=== PATIENT | female | born 1985 | race Caucasian/White ===

== ENCOUNTER 2020-10-05 06:52 | Outpatient (CLI) | payer OTHER, SELFPAY ==
[2020-10-05 07:37] LABS: Basophils Absolute Auto 0.1 K/mm3 (0.0-0.1); Basophils Percent Auto 0.9 % (0.2-1.2); Eosinophils Absolute Auto 0.4 K/mm3 (0-0.3); Eosinophils Percent Auto 5.1 % (0-4.4); Hematocrit 41.4 % (37.0-47.0); Hemoglobin 13.7 g/dL (12.0-15.0); Immature Granulocyte Absolute 0.06 K/mm3 (0.00-0.031); Immature Granulocyte Percent A 0.9 % (0-0.5); Lymphocytes Absolute Auto 1.56 K/mm3 (0.9-3.2); Lymphocytes Percent Auto 22.9 % (18.3-44.2); Mean Corpuscular HGB Conc 33.1 g/dl (32-36); Mean Corpuscular Hemoglobin 30.8 pg (26-34); Mean Platelet Volume 9.8 fl (7.4-10.4); Monocytes Absolute Auto 0.5 K/mm3 (0.1-0.6); Monocytes Percent Auto 7.6 % (2.6-8.5); Neutrophils Absolute Auto 4.3 K/mm3 (1.3-6.7); Neutrophils Percent Auto 62.6 % (45.5-73.1); Platelet Count Result 237 k/mm3 (150-375); Red Blood Count 4.45 M/mm3 (4.2-5.4); Red Cell Distribution Width 11.6 % (11.5-14.5); White Blood Count 6.8 K/mm3 (4.5-10.0)
[2020-10-05 07:49] LABS: Alanine Aminotransferase 11 U/L (4-35); Alkaline Phosphatase 58 U/L (38-126); Anion Gap 4 mmol/L (8-16); Aspartate Amino Transferase 23 U/L (14-36); Bilirubin,Total 0.3 mg/dL (0.2-1.3); Blood Urea Nitrogen 11 mg/dL (7-17); Calcium 8.6 mg/dL (8.4-10.2); Carbon Dioxide 28 mmol/L (22-30); Chloride 107 mmol/L (98-107); Cholesterol 195 mg/dL (0-200); Estimated Glomerular Filt Rate > 60; Glucose 94 mg/dL (65-105); HDL Direct 49 mg/dL; Potassium 4.4 mmol/L (3.4-5.0); Sodium 139 mmol/L (137-145); Triglycerides 103 mg/dL (<150)
[2020-10-05 08:00] LABS: Hemoglobin A1C 4.9 % (<5.7); LDL Cholesterol Direct 102 mg/dL
[2020-10-05 08:08] LABS: Creatinine Urine 193.8 mg/dL
[2020-10-05 08:13] LABS: MALB Creatinine Ratio 5.2 mg/g (0-30); Microalbumin Urine Random 10.1 mg/L (0-16.7)
[2020-10-05 08:23] LABS: Vitamin D 25 Hydroxy 38.8 ng/mL
== END 2020-10-05 06:53 | disposition home or self-care (01) ==
PROVIDERS: PCP Internal Medicine; Visit Provider Internal Medicine
DX: E78.5 Hyperlipidemia, unspecified (principal); E55.9 Vitamin D deficiency, unspecified; R73.01 Impaired fasting glucose; Z00.00 Encounter for general adult medical examination without abnormal findings
CPT/HCPCS: 36415; 80053; 80061; 82043; 82306; 83036; 84443; 85025

== ENCOUNTER 2021-10-08 08:36 | Outpatient (CLI) | payer OTHER, SELFPAY ==
[2021-10-08 09:19] LABS: Hematocrit 42.4 % (37.0-47.0); Mean Platelet Volume 9.5 fl (7.4-10.4); Platelet Count Result 321 k/mm3 (150-375); Red Blood Count 4.51 M/mm3 (4.2-5.4); Red Cell Distribution Width 11.8 % (11.5-14.5); White Blood Count 6.8 K/mm3 (4.5-10.0)
[2021-10-08 09:24] LABS: Alanine Aminotransferase 13 U/L (4-35); Albumin Level 4.4 g/dL (3.5-5.1); Alkaline Phosphatase 59 U/L (38-126); Anion Gap 8 mmol/L (8-16); Aspartate Amino Transferase 23 U/L (14-36); Bilirubin,Total 0.4 mg/dL (0.2-1.3); Blood Urea Nitrogen 16 mg/dL (7-17); Carbon Dioxide 26 mmol/L (22-30); Chloride 105 mmol/L (98-107); Estimated Glomerular Filt Rate > 60; Glucose 86 mg/dL (65-110); Potassium 4.8 mmol/L (3.4-5.0); Sodium 139 mmol/L (137-145)
== END 2021-10-08 08:37 | disposition home or self-care (01) ==
LOC: ANHLAB 08:38
PROVIDERS: PCP Internal Medicine; Visit Provider Internal Medicine
DX: Z00.00 Encounter for general adult medical examination without abnormal findings (principal)
CPT/HCPCS: 36415; 80053; 85027

== ENCOUNTER 2021-12-12 11:01 | Outpatient (CLI) | payer OTHER, SELFPAY ==
[2021-12-12 12:09] LABS: Appearance Urine Slightly Cloudy (Clear); Bilirubin Urine Negative (Negative); Blood Urine Trace-lysed (Negative); Glucose Urine UA Negative (Negative); Ketones Urine Negative (Negative); Leukocyte Esterase Ur Negative LEU/UL (Negative); Nitrate Urine Negative (Negative); Protein Urine Negative (Negative); Specific Grav Ur <= 1.005 (1.001-1.035); Urobilinogen Urine 0.2 mg/dL (<2.0)
[2021-12-12 12:16] LABS: Add Urine Microscopic? YES; Color Urine Light Yellow (Yellow)
[2021-12-12 12:25] LABS: Bacteria Urine Trace /hpf; RBC Urine 0-2 /hpf (0-2); Squamous Epithelial Cell Urine Few /hpf (Few); WBC Urine 0-3 /hpf
== END 2021-12-12 11:02 | disposition home or self-care (01) ==
LOC: ANHLAB 11:02
PROVIDERS: PCP Internal Medicine; Visit Provider Nurse Practitioner
DX: R30.0 Dysuria (principal)
CPT/HCPCS: 81001

== ENCOUNTER 2022-03-14 09:22 | Outpatient (CLI) | payer OTHER, SELFPAY ==
[2022-03-14 10:05] LABS: Appearance Urine Clear (Clear); Bilirubin Urine Negative (Negative); Blood Urine 2+ (Negative); Color Urine Yellow (Yellow); Glucose Urine UA Negative (Negative); Ketones Urine Negative (Negative); Leukocyte Esterase Ur Trace LEU/UL (Negative); Nitrate Urine Negative (Negative); Protein Urine Negative (Negative); Specific Grav Ur <= 1.005 (1.001-1.035); Urobilinogen Urine 0.2 mg/dL (<2.0); pH Urine 6.5 (5.0-9.0)
[2022-03-14 10:12] LABS: Add Urine Microscopic? YES
[2022-03-14 10:15] LABS: Bacteria Urine Trace /hpf; Mucus Urine Rare /lpf; Squamous Epithelial Cell Urine Rare /hpf (Few); WBC Urine 0-3 /hpf
== END 2022-03-14 09:23 | disposition home or self-care (01) ==
LOC: ANHLAB 09:23
PROVIDERS: PCP Internal Medicine; Visit Provider Internal Medicine
DX: R30.0 Dysuria (principal)
CPT/HCPCS: 81001

== ENCOUNTER 2022-09-26 08:25 | Outpatient (CLI) | payer OTHER, SELFPAY ==
[2022-09-26 09:15] LABS: Hematocrit 41.9 % (37.0-47.0); Mean Corpuscular HGB Conc 33.4 g/dl (32-36); Mean Corpuscular Hemoglobin 30.9 pg (26-34); Mean Corpuscular Volume 92.5 fl (80-100); Mean Platelet Volume 9.8 fl (7.4-10.4); Platelet Count Result 259 k/mm3 (150-375); Red Blood Count 4.53 M/mm3 (4.2-5.4); Red Cell Distribution Width 11.8 % (11.5-14.5); White Blood Count 7.6 K/mm3 (4.5-10.0)
== END 2022-09-26 08:26 | disposition home or self-care (01) ==
LOC: ANHSURGERY 08:29
PROVIDERS: PCP Internal Medicine; Visit Provider Obstetrics & Gynecology
DX: Z01.818 Encounter for other preprocedural examination (principal)
CPT/HCPCS: 36415; 85027

== ENCOUNTER 2022-10-02 00:40 | Day surgery (SDC) | payer OTHER, SELFPAY ==
[2022-09-22 15:38] VITALS: BMI 26.2
--- NOTE | 2022-09-22 15:42 | PC.NURSE ---
Report to the Outpatient Waiting Room, entrance under the green pavilion located off [facility], at time 7:30 on date 10/02/22. Planned Procedure Time: 9:30. Time changes happen often and if your time is changed the preop area will call you the afternoon before. - You and your visitor will be asked to self-screen and do not enter if you have any COVID symptoms. - Only one visitor is requested with a max of two and NO children visitors are allowed at this time. - The patient visitor may be requested to leave or wait in car when not with patient due to distancing restrictions. - A mask is optional within the hospital at this time. Patients may have clear liquids (water, carbonated beverages, clear teas, apple juice) until 3 hours prior to surgery with a maximum of 20 ounces. - No food from midnight until time of surgery Take the following medications with a SIP of water the morning of surgery: NONE DO NOT STOP ANY OF YOUR OTHER PRESCRIPTION MEDICATIONS PRIOR TO SURGERY EXCEPT THE FOLLOWING Medications to discontinue per physician: N/A Date to take last dose: N/A Please no make-up, nail somali, hairspray, perfume, deodorant, or body powder the day of surgery. No jewelry (including any body piercings) or valuables the day of surgery, leave them at home. Please take a shower or bath the night before, or the morning of, surgery with an antibacterial soap. Wear comfortable, loose fitting clothing. - Jewelry must be removed prior to entering the operating room. Rings and piercings that are not removed may be cut off. - The hospital will not accept responsibility for valuables. - Please leave all valuables, including medications, at home the day of surgery. If you are going home after surgery, a licensed helper/driver must drive you home. - NO public transportation without another adult if you receive anesthesia. - We recommend that an adult stay with you for 24 hours following discharge. - We also recommend that you do not drive, make important decision, drink alcoholic beverages, or take any drugs that were not prescribed by your health care provider for at least 24 hours after your discharge time. Follow any additional instructions given to you from your surgeon. If you or anyone in your household have experienced Covid symptoms in the past week, please notify your surgeon or the nurse liaison at the phone number below for possible testing. Telephone instructions given to PT - ESPERANZA QUIROZ and asked if any additional questions and then verbalized understanding. Patient advised to call surgeon office or pre surgery nurse liaison [phone] if any additional questions.
[2022-10-02] VITALS (8 sets, daily range): BP systolic 100–143; BP diastolic 61–94; PULSE 70–94; RESP 12–20; TEMP 36.8; O2SAT 97–100
--- NOTE | 2022-10-02 07:34 | WPDHPUPDATE1 ---
History and Physical Update Update Date/Time: 10/02/22 07:34 History and Physical has been reviewed, including an updated exam of the patient. There are NO changes in the patient's condition. Risks, benefits, and alternatives have been discussed and questions answered. Patient agrees to proceed with procedure.
[2022-10-02] MEDS: LACTATED RINGERS 1,000 ML 30 ML IV CONT ×2 (07:45→10:32)
[2022-10-02] MEDS: ACETAMINOPHEN 500 MG TABLET 1000 MG PO (07:48)
[2022-10-02] MEDS: KETOROLAC 15 MG/ML VIAL (*BKC) IV PUSH (07:49)
[2022-10-02] MEDS: SCOPOLAMINE 1.5 MG PATCH TRANSDERM (08:16)
--- NOTE | 2022-10-02 08:21 | WPDANESEPPF ---
Anes - Initial Pre Proc Eval Procedure: Operation Date: 10/02/22 09:30 Proposed Procedures p Bilateral Laparoscopic Salpingectomy - Jean Fairbanks MD Date/Time: 10/02/22 08:21 Surgeon: Jean Fairbanks MD Pre Op Diagnosis: Desires Serilization Patient Data Age: 37 Gender: F Height: 1.5 m Weight: 58 kg Last Vital Signs Temp 36.8 C 10/02/22 08:00 Pulse 81 10/02/22 08:00 Resp 16 10/02/22 08:00 BP 130/61 10/02/22 08:00 Pulse Ox 100 10/02/22 08:00 O2 Del Method Room Air 10/02/22 08:00 Allergies Allergy/AdvReac Type Severity Reaction Status Date / Time Sulfa (Sulfonamide Allergy Unknown hives Verified 10/02/22 08:07 Antibiotics) Home Medications Medication Instructions Recorded Confirmed Type famotidine 10 mg tablet (Pepcid AC) 10 mg PO DAILY 09/17/22 10/02/22 History loratadine 10 mg tablet (Claritin) 10 mg PO DAILY 09/17/22 10/02/22 History norethindrone (contraceptive) 0.35 0.35 mg PO DAILY #84 tabs 09/17/22 10/02/22 Rx mg tablet Patient hx anesthesia problems: none Family hx anesthesia problems: none Results Review: All pre-operative results and documents have been reviewed as part of the pre-operative evaluation. [facility] Past Medical History Medical History Essential hypertension MAG (generalized anxiety disorder) Hot flashes Hypersomnolence Kidney stones (07/13/06) passed natural Primary narcolepsy without cataplexy Surgical History Surgical History Delivery by section (08/28/19) rpt c/s History of (11/13/10) primary c/s History of gynecological procedure (12/25/10) mirena iud insertion History of gynecological procedure laparoscopic removal of retained IUD device History of gynecological procedure Hscope suction D&C missed AB History of gynecological procedure Hscope D&C retained placenta after delivery Hx laparoscopic cholecystectomy 09/28/18 Family History Family History Sibling Asthma Family history of obesity Depression Hypertension Factor V deficiency Father Family history of diabetes mellitus in first degree relative Family history of heart disease in male family member before age 55 Diabetes mellitus Family history of obesity Patient's father is in good health Mother Family history of diabetes mellitus in first degree relative Family history of heart disease in male family member before age 55 Diabetes mellitus Hypertension Patient's mother is in good health Other Family history of cardiovascular disease Family history of malignant neoplasm Social History Social History Smoking status: Never smoker Second hand tobacco smoke exposure: No Alcohol intake: current Alcohol use details: 1/MONTH Substance use: never Substance use type: does not use Living arrangements: with family Additional living arrangements comments: spouse Occupation/Education: occupation 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 Gender identity (if verbalized by the patient): Female Sexual Orientation (if Verbalized by the Patient): Straight or Heterosexual Spiritual care concerns: No Anes - Eval Final PreProcedure Day of Procedure 10/02/22 08:21 Patient weight: normal Heart: regular rate and rhythm Lungs: clear to auscultation Airway: Mallampati scale class 1 Neurological: alert and oriented Last oral intake: >/= 8 hours ASA classification: II Emergent: no Anesthetic plan: proceed Anesthesia type and monitoring: general ETT and standard monitoring Results Review: All pre-operative results and documents have been reviewed as part of the pre-operative evaluation. Informed Consent: The patient's anesthetic plan and its attendant risks a
--- NOTE | 2022-10-02 10:48 | W.PM.PROC2 ---
Procedure Note - Detailed Date of Procedure 10/02/22 Pre-op Diagnosis 1. Desires Serilization Post-op Diagnosis Same (2. Left ovarian cyst) Procedure Performed 1. Laparoscopic bilateral salpingectomy 2. Laparoscopic left ovarian cystotomy Surgeon Jean Fairbanks MD Anesthesia General Findings 1. Left ovarian simple cyst 2. Uterus consistent with adenomyosis Description of Procedure Patient prepped in usual manner for this procedure. Cervical instruments placed for uterine mobility throughout the case. Abdominal trocar sites were placed under direct visualization. Bilaterally the tubes were grasped with a Harmonic scalpel to cauterize and cut the mesial salpinx and the tubes removed without difficulty. Left ovarian cyst was drained of 50cc clear fluid. There was no significant bleeding and the cyst had decompressed. At this point the procedure was considered terminated, gas was allowed to escape, trocars removed and incisions approximated using 4-0 Monocryl. Estimated Blood Loss 10 Drains No Packing No Pathology Yes Complications No immediate complications Condition Stable Disposition PACU [facility] Billing Surgery - Charge Forward: Surgery Billing
[2022-10-02] MEDS: fentaNYL CITRATE INJ (*CRX) 100 MCG/2 ML VIAL 25 MCG IV PUSH ×3 (10:53→11:06)
[2022-10-02] MEDS: oxyCODONE HCL (*CRX) 5 MG TAB IR PO (11:36)
== END 2022-10-02 12:15 | disposition home or self-care (01) ==
PROVIDERS: PCP Internal Medicine; Visit Provider Obstetrics & Gynecology
PROC: (CPT 49320; principal; 2022-10-02 09:30)
DX: Z30.2 Encounter for sterilization (principal); N83.202 Unspecified ovarian cyst, left side; N83.8 Other noninflammatory disorders of ovary, fallopian tube and broad ligament
CPT/HCPCS: 58661; 58662; 36415; 85027; 88302; A9270; J0330; J1100; J1170; J1885; J2250; J2405; J2704; J3010; J7120

== ENCOUNTER 2022-10-11 06:53 | Outpatient (CLI) | payer OTHER, SELFPAY ==
[2022-10-11 07:30] LABS: Alanine Aminotransferase 15 U/L (6-35); Albumin Level 4.4 g/dL (3.5-5.1); Alkaline Phosphatase 54 U/L (38-126); Anion Gap 5 mmol/L (8-16); Aspartate Amino Transferase 20 U/L (14-36); Bilirubin,Total 0.6 mg/dL (0.2-1.3); Blood Urea Nitrogen 11 mg/dL (7-17); Calcium 8.8 mg/dL (8.4-10.2); Carbon Dioxide 27 mmol/L (22-30); Chloride 106 mmol/L (98-107); Cholesterol 222 mg/dL (0-200); Estimated Glomerular Filt Rate > 60; Glucose 91 mg/dL (65-110); HDL Direct 57 mg/dL; Potassium 4.8 mmol/L (3.4-5.0); Sodium 138 mmol/L (137-145); Triglycerides 128 mg/dL (<150)
[2022-10-11 07:41] LABS: LDL Cholesterol Direct 113 mg/dL
[2022-10-11 07:42] LABS: Hemoglobin A1C 5.1 % (<5.7)
[2022-10-11 07:43] LABS: Vitamin D 25 Hydroxy 27.8 ng/mL
== END 2022-10-11 06:54 | disposition home or self-care (01) ==
LOC: ANHLAB 06:54
PROVIDERS: PCP Internal Medicine; Visit Provider Nurse Practitioner
DX: Z00.00 Encounter for general adult medical examination without abnormal findings (principal); E78.5 Hyperlipidemia, unspecified; R73.01 Impaired fasting glucose; E55.9 Vitamin D deficiency, unspecified
CPT/HCPCS: 36415; 80053; 80061; 82306; 83036; 84439; 84443

== ENCOUNTER 2022-11-26 15:32 | Outpatient (CLI) | payer OTHER, SELFPAY ==
--- NOTE | ~2022-11-26 | XR_ITS ---
XR abdomen/kub 1V 11/26/2022 16:13 Indication: Kidney stones Procedure: KUB Comparison: 02/07/2007 Findings: Bowel gas pattern is nonobstructive. There is calcification in the left upper abdomen, most likely a stone in the upper pole of left kidney. No acute osseous abnormality. Lung bases are unrema rkable. Impression: 1: Probable left nephrolithiasis. Reviewed, dictated and finalized at location B. Impression: 1: Probable left nephrolithiasis.
[2022-11-26 16:02] LABS: Appearance Urine Clear (Clear); Bacteria Urine None Seen /hpf; Bilirubin Urine Negative (Negative); Blood Urine Trace (Negative); Color Urine Yellow (Yellow); Glucose Urine UA Negative (Negative); Ketones Urine Negative (Negative); Leukocyte Esterase Ur 1+ LEU/UL (Negative); Need Manual Microscopic Reviewed; Nitrate Urine Negative (Negative); Non Pathogenic Casts 0-2; Protein Urine Negative (Negative); RBC Urine 0-2 /hpf (0-2); Specific Grav Ur 1.004 (1.001-1.035); Squamous Epithelial Cell Urine None seen /hpf (Few); Urobilinogen Urine 0.2 mg/dL (<2.0); WBC Urine 0-5 /hpf; pH Urine 5.5 (5.0-9.0)
[2022-11-26 16:05] LABS: Add Urine Microscopic? YES
== END 2022-11-26 15:33 | disposition home or self-care (01) ==
LOC: ANHLAB 15:34
PROVIDERS: PCP Family Medicine; Visit Provider Nurse Practitioner
DX: R10.9 Unspecified abdominal pain (principal)
CPT/HCPCS: 74018; 81001

== ENCOUNTER 2023-06-02 08:46 | Outpatient (CLI) | payer OTHER, SELFPAY ==
--- NOTE | ~2023-06-02 | XR_ITS ---
XR abdomen/kub 1V 06/02/2023 09:09 INDICATION: Left kidney stone TECHNIQUE: KUB COMPARISON: 11/26/2022 FINDINGS: Bowel gas pattern is normal. There is no evidence of free air, mass, organomegaly, ascites or obstruction. There is a 4 mm left renal stone. The bones appear intact. IMPRESSION: 1: Stable 4 mm left renal stone. Reviewed, dictated and finalized at location L. ET ASSEMBLER
== END 2023-06-02 08:47 | disposition home or self-care (01) ==
PROVIDERS: PCP Nurse Practitioner; Visit Provider Urology
DX: N20.0 Calculus of kidney (principal)
CPT/HCPCS: 74018

== ENCOUNTER 2023-06-22 15:53 | Outpatient (CLI) | payer OTHER, SELFPAY ==
[2023-06-22 17:08] LABS: Prothrombin Time 13.3 Seconds (11.1-14.7)
[2023-06-22 17:09] LABS: Partial Thromboplastin Time 30.9 SECONDS (22.3-36.8)
== END 2023-06-22 15:54 | disposition home or self-care (01) ==
PROVIDERS: PCP Nurse Practitioner; Visit Provider Urology
DX: N20.0 Calculus of kidney (principal)
CPT/HCPCS: 36415; 85610; 85730; 87086; 87088

== ENCOUNTER 2023-06-26 04:23 | Day surgery (SDC) | payer OTHER, SELFPAY ==
--- NOTE | 2023-06-19 07:41 | PM.HPGS ---
History of Present Illness History of Present Illness Consent: Risks, benefits, and alternatives have been discussed and questions answered. Patient agrees to proceed with procedure. Chief complaint: left renal stone Narrative: Tasha Gomez is a 38 year old female with a known history of recurrent urolithiasis who was seen approximately 5-6 months ago when KUB imaging demonstrated a moderate-sized stone in her left kidney. This has become slightly problematic and, after discussion of therapeutic options she is elected for left ESWL. She is aware of the risks including, but not limited to, need for additional procedures, hematuria and perinephric hematoma Review of Systems Review of Systems: All systems reviewed & are unremarkable except as noted in HPI and below PMFSH Past Medical History Medical History (Updated 04/23/23 @ 14:05 by Sebastian Sewell APRN) Essential hypertension MAG (generalized anxiety disorder) Hot flashes Hypersomnolence Kidney stones (07/13/06) passed natural Low vitamin D level Primary narcolepsy without cataplexy Surgical History Surgical History Delivery by section (08/28/19) rpt c/s H/O bilateral salpingectomy (10/02/22) Laparoscopic bilateral salpingectomy Laparoscopic left ovarian cystotomy History of (11/13/10) primary c/s History of gynecological procedure (12/25/10) mirena iud insertion History of gynecological procedure laparoscopic removal of retained IUD device History of gynecological procedure Hscope suction D&C missed AB History of gynecological procedure Hscope D&C retained placenta after delivery Hx laparoscopic cholecystectomy 09/28/18 Family History Family History Sibling Asthma Family history of obesity Depression Hypertension Factor V deficiency Father Family history of diabetes mellitus in first degree relative Family history of heart disease in male family member before age 55 Diabetes mellitus Family history of obesity Patient's father is in good health Mother Family history of diabetes mellitus in first degree relative Family history of heart disease in male family member before age 55 Diabetes mellitus Hypertension Patient's mother is in good health Other Family history of cardiovascular disease Family history of malignant neoplasm Social History Social History Smoking status: Never smoker Second hand tobacco smoke exposure: No Alcohol intake: current Alcohol use details: 1/MONTH Substance use: never Substance use type: does not use Lack of Transportation: No Lack of Food: Never True Current Housing: I Have Housing Concerned About Future Housing: No Difficulty Paying Gas/Electric Bills: No Difficulty Paying for Meds: No Currently Unemployed: No Education: Associate Degree Difficulty w/ Childcare or Family Care: No Living arrangements: with family Additional living arrangements comments: spouse Occupation/Education: occupation 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 Gender identity (if verbalized by the patient): Female Sexual Orientation (if Verbalized by the Patient): Straight or Heterosexual Spiritual care concerns: No Meds Home Medications and Allergies Home Medications Medication Instructions Recorded Confirmed Type famotidine 10 mg tablet (Pepcid AC) 10 mg PO DAILY 09/17/22 04/23/23 History loratadine 10 mg tablet (Claritin) 10 mg PO DAILY 09/17/22 04/23/23 History cholecalciferol (vitamin D3) 50 50 mcg PO DAILY 10/15/22 04/23/23 History mcg (2,000 unit) capsule apixaban 2.5 mg tablet (Eliquis) 2.5 mg PO BID 04/23/23 04/23/23 History Allergies Allergy/AdvReac Type Severity Reaction Status Date / Time Sulfa (Sulfonamide Allergy Unknown hi
[2023-06-22 15:02] VITALS: BMI 26.2
--- NOTE | 2023-06-22 15:10 | PC.NURSE ---
Report to the Outpatient Waiting Room, entrance under the green pavilion located off [facility], at time 830__ on date __06/26 . Planned Procedure Time: 1030___. Time changes happen often and if your time is changed the preop area will call you the afternoon before. - You and your visitor will be asked to self-screen and do not enter if you have any COVID symptoms. - A mask is optional within the hospital at this time. Patients may have clear liquids (water, carbonated beverages, clear teas, apple juice) until 3 hours prior to surgery with a maximum of 20 ounces. 730 stop - No food from midnight until time of surgery Take the following medications with a SIP of water the morning of surgery: NA DO NOT STOP ANY OF YOUR OTHER PRESCRIPTION MEDICATIONS PRIOR TO SURGERY ?EXCEPT THE FOLLOWING Medications to discontinue per physician stopped aspirin and Vit D3 as office advised a week ago Please no make-up, nail luxembourgish, hairspray, perfume, deodorant, or body powder the day of surgery. No jewelry (including any body piercings) or valuables the day of surgery, leave them at home. Please take a shower or bath the night before, or the morning of, surgery with an antibacterial soap. Wear comfortable, loose fitting clothing. - Jewelry must be removed prior to entering the operating room. Rings and piercings that are not removed may be cut off. - The hospital will not accept responsibility for valuables. - Please leave all valuables, including medications, at home the day of surgery. If you are going home after surgery, a licensed delivery driver/customer service must drive you home. - NO public transportation without another adult if you receive anesthesia. - We recommend that an adult stay with you for 24 hours following discharge. - We also recommend that you do not drive, make important decision, drink alcoholic beverages, or take any drugs that were not prescribed by your health care provider for at least 24 hours after your discharge time. Follow any additional instructions given to you from your surgeon. If you or anyone in your household have experienced Covid symptoms in the past week, please notify your surgeon or the nurse liaison at the phone number below for possible testing. Telephone instructions given to __patient__and asked if any additional questions and then verbalized understanding. Patient advised to call surgeon office or pre surgery nurse liaison [phone] if any additional questions.
[2023-06-26] VITALS (8 sets, daily range): BP systolic 109–131; BP diastolic 69–80; PULSE 76–107; RESP 12–18; TEMP 36.3–36.9; O2SAT 97–100
--- NOTE | ~2023-06-26 | XR_ITS ---
EXAMINATION: XR abdomen/kub 1V INDICATION: Kidney stone TECHNIQUE: Supine views of the abdomen were obtained on 2 radiographs. COMPARISON: 06/02/2023 FINDINGS: There is a 4 mm stone of the left kidney. No additional urolithiasis is identified. The bow el gas pattern is normal. There is a moderate volume of colonic stool. IMPRESSION: 1. Stable 4 mm stone of the left kidney. Reviewed, dictated and finalized at location B. O PRODUCER
--- NOTE | 2023-06-26 06:27 | WPDHPUPDATE1 ---
History and Physical Update Update Date/Time: 06/26/23 06:27 History and Physical has been reviewed, including an updated exam of the patient. There are NO changes in the patient's condition. Risks, benefits, and alternatives have been discussed and questions answered. Patient agrees to proceed with procedure.
--- NOTE | 2023-06-26 09:16 | WPDANESEPPF ---
Anes - Initial Pre Proc Eval Procedure: Operation Date: 06/26/23 10:30 Proposed Procedures p Left Extracorporeal Shock Wave Lithotripsy - Kannan Osorio MD Date/Time: 06/26/23 09:16 Surgeon: Kannan Osorio MD Pre Op Diagnosis: left renal stone Patient Data Age: 38 Gender: F Height: 1.5 m Weight: 58.2 kg Allergies Allergy/AdvReac Type Severity Reaction Status Date / Time Sulfa (Sulfonamide Allergy Unknown hives Verified 06/26/23 09:03 Antibiotics) Home Medications Medication Instructions Recorded Confirmed Type famotidine 10 mg tablet (Pepcid AC) 20 mg PO BID 09/17/22 06/22/23 History loratadine 10 mg tablet (Claritin) 10 mg PO DAILY 09/17/22 06/22/23 History cholecalciferol (vitamin D3) 50 50 mcg PO DAILY 10/15/22 06/22/23 History mcg (2,000 unit) capsule aspirin 81 mg chewable tablet 81 mg PO DAILY 06/22/23 06/22/23 History Patient hx anesthesia problems: none Family hx anesthesia problems: none Results Review: All pre-operative results and documents have been reviewed as part of the pre-operative evaluation. [facility] Past Medical History Medical History Essential hypertension MAG (generalized anxiety disorder) Hot flashes Hypersomnolence Kidney stones (07/13/06) passed natural Low vitamin D level Primary narcolepsy without cataplexy Surgical History Surgical History Delivery by section (08/28/19) rpt c/s H/O bilateral salpingectomy (10/02/22) Laparoscopic bilateral salpingectomy Laparoscopic left ovarian cystotomy History of (11/13/10) primary c/s History of gynecological procedure (12/25/10) mirena iud insertion History of gynecological procedure laparoscopic removal of retained IUD device History of gynecological procedure Hscope suction D&C missed AB History of gynecological procedure Hscope D&C retained placenta after delivery Hx laparoscopic cholecystectomy 09/28/18 Family History Family History Sibling Asthma Family history of obesity Depression Hypertension Factor V deficiency Father Family history of diabetes mellitus in first degree relative Family history of heart disease in male family member before age 55 Diabetes mellitus Family history of obesity Patient's father is in good health Mother Family history of diabetes mellitus in first degree relative Family history of heart disease in male family member before age 55 Diabetes mellitus Hypertension Patient's mother is in good health Other Family history of cardiovascular disease Family history of malignant neoplasm Social History Social History Smoking status: Never smoker Second hand tobacco smoke exposure: No Alcohol intake: never Alcohol use details: 1/MONTH Substance use: never Substance use type: does not use Lack of Transportation: No Lack of Food: Never True Current Housing: I Have Housing Concerned About Future Housing: No Difficulty Paying Gas/Electric Bills: No Difficulty Paying for Meds: No Currently Unemployed: No Education: Associate Degree Difficulty w/ Childcare or Family Care: No Living arrangements: with family Additional living arrangements comments: spouse Occupation/Education: occupation 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
[2023-06-26] MEDS: LACTATED RINGERS 1,000 ML 30 ML IV CONT ×2 (09:45→12:03)
[2023-06-26] MEDS: ceFAZolin 2 GM/D5W 50 ML 2 GM/50 ML BAG IVPB (10:38)
--- NOTE | 2023-06-26 10:59 | W.PM.PROC2 ---
Procedure Note - Detailed Date of Procedure 06/26/23 Pre-op Diagnosis Left renal stone Post-op Diagnosis Same Procedure Performed Left ESWL Surgeon Kannan Osorio MD Anesthesia General Description of Procedure The patient was brought to the operative suite where she was placed in the supine position on the Dornier lithotripsy table. The focal point of the lithotripter was placed at a 5-6mm left upper pole calculus. A total of 2500 shocks were delivered at a power setting of 4. There appeared to be good fragmentation of the stone. The patient tolerated the procedure well and was taken to the recovery room in good condition. Drains No Packing No Pathology None sent Complications No immediate complications Condition Stable Disposition PACU
== END 2023-06-26 13:53 | disposition home or self-care (01) ==
PROVIDERS: PCP Nurse Practitioner; Visit Provider Urology
PROC: (CPT 50590; principal; 2023-06-26 10:30)
DX: N20.0 Calculus of kidney (principal); I10 Essential (primary) hypertension
CPT/HCPCS: 50590; 74018; J0690; J1100; J2250; J2405; J2704; J3010; J7120

== ENCOUNTER 2023-07-08 10:26 | Outpatient (CLI) | payer OTHER, SELFPAY ==
--- NOTE | ~2023-07-08 | XR_ITS ---
XR abdomen/kub 1V 07/08/2023 10:44 Indication: Renal stone. Previous lithotripsy. Procedure: KUB Comparison: Comparison to multiple prior studies sequentially, with oldest reviewed study dated 01/2023. Findings: Stable left renal calcification corresponding to cortical calcification seen on prior CT da danny 12/16/2022 bowel gas pattern nonobstructing. No acute osseous abnormality. Impression: 1: Stable left renal stone. Reviewed, dictated and finalized at location B. STRIAL GARAGE SERVICER Impression: 1: Stable left renal stone.
== END 2023-07-08 10:27 | disposition home or self-care (01) ==
PROVIDERS: PCP Nurse Practitioner; Visit Provider Urology
DX: N20.0 Calculus of kidney (principal)
CPT/HCPCS: 74018

== ENCOUNTER 2023-07-29 14:08 | Outpatient (CLI) | payer OTHER, SELFPAY | END 2023-07-29 14:09 | disposition home or self-care (01) | LOC: ANHLAB 14:10 | PROVIDERS: PCP Nurse Practitioner; Visit Provider Internal Medicine Critical Care Medicine | DX: G25.81 Restless legs syndrome (principal) | CPT/HCPCS: 36415; 82728 ==

== ENCOUNTER 2023-08-14 09:48 | Outpatient (CLI) | payer OTHER, SELFPAY ==
[2023-08-14 11:06] LABS: Appearance Urine Clear (Clear); Bacteria Urine 1+ /hpf; Bilirubin Urine Negative (Negative); Color Urine Yellow (Yellow); Glucose Urine UA Negative (Negative); Ketones Urine Negative (Negative); Leukocyte Esterase Ur 3+ LEU/UL (Negative); Need Manual Microscopic Reviewed; Nitrate Urine Negative (Negative); Non Pathogenic Casts 0-2; Protein Urine Negative (Negative); RBC Urine 0-2 /hpf (0-2); Specific Grav Ur 1.005 (1.001-1.035); Squamous Epithelial Cell Urine None seen /hpf (Few); Urobilinogen Urine 0.2 mg/dL (<2.0); WBC Urine 21-50 /hpf; pH Urine 5.5 (5.0-9.0)
[2023-08-14 11:08] LABS: Add Urine Microscopic? YES
== END 2023-08-14 09:49 | disposition home or self-care (01) ==
LOC: ANHLAB 09:50
PROVIDERS: PCP Nurse Practitioner; Visit Provider Nurse Practitioner
DX: R39.9 Unspecified symptoms and signs involving the genitourinary system (principal)
CPT/HCPCS: 81001; 87086

== ENCOUNTER 2023-08-31 08:45 | Outpatient (CLI) | payer OTHER, SELFPAY ==
--- NOTE | 2023-09-10 13:41 | WPDHOMESLEEP ---
Sleep Study - Home Unattended Date of Study: 08/31/23 Ordering Provider: Anjali Blanco MD Interpreting Provider: Anjali Blanco MD Home Sleep Study Type: Watch PAT Height: 1.5 m Weight: 58.513 kg Body Mass Index: 26.0 Neck Circumference (inches): 13 [place]: 12 Reason for Sleep Study Hypersomnolence * Apr 15, 2016- PSG- AHI 0.3, high sleep efficiency, short sleep onset and short REM latency; MSLT 3 m 47 sec, no SOREMP, no diagnosis of narcolepsy; she was diagnosed with idiopathic hypersomnolence * 01/04/2014 - PSG- AHI 0.3, lowest saturation 90%, periodic limb movement index 3.7; REM latency was short, 62.5 minutes. MSLT was recommended. Sleep History Tasha Gomez is a 38-year-old woman with longstanding hypersomnolence, see above study results. Since then, she has been diagnosed with Factor V Leiden mutation and vision loss due to retinal vein occlusion without atrial fibrillation. She was referred for repeat evaluation to assure that she does not have nocturnal ischemia that would cause additional visual loss, in addition to persistent hypersomnolence. She rarely awakens from sleep short of breath. She occasionally wakes at night with heartburn, belching or coughing.??She rarely snores, never snores loudly enough that others complain. She frequently has trouble sleeping when she has a cold. She rarely wakes up gasping for breath during the night. She occasionally has breathing problems at night. She frequently sweats excessively at night. She occasionally notices her heart pounding or beating irregularly during the night. She frequently falls asleep during the day. She rarely falls asleep involuntarily, never falls asleep while driving. She never experiences loss of muscle tone with strong emotion. She occasionally feels paralyzed on waking or falling asleep. She occasionally experiences vivid dreams upon waking or falling asleep. She never feels afraid of going to sleep. She occasionally has nightmares. She occasionally recalls her dreams. She occasionally has thoughts racing through her mind. She never feels sad or depressed. She rarely feels anxiety. She occasionally notices parts of her body jerk. She frequently kicks during the night. She frequently feels crawling or aching feelings in her legs. She frequently feels leg pain at night. She rarely has morning jaw pain, however never grinds her teeth at night. She never feels bothered by pain during the day, is never awakened by pain during the night. She rarely wakes up feeling stiff in the morning, rarely wakes feeling sore or achy in the morning. She rarely awakens with pain in her neck, spine, or joints. she has fatigue, concentration difficulties, headaches and she takes antacids regularly. Normal bedtime is between 9:30 p.m. and 10:00 p.m., falling asleep within 15 minutes, typically waking several times at night, between 6 and 8 episodes of wakefulness, and these are for no apparent reason. These happen soon after falling asleep, in the middle of the night and the family health nurse practitioner hours. When awake, she may possibly get a drink of water and then returns to sleep within 5-10 minutes. Her wake time is 6:30 a.m.. On weekends, bedtime is a little later, 10:00 p.m. to 10:30 p.m. and wake time is a little later, 7:30 a.m. to 8:00 a.m. Her excessive sleepiness interrupts her personal life, avoiding social events and intimacy at times. she does not generally take naps in the day. A short nap lasting 10-15 minutes is not refreshing. She is drowsy for 2 hours after waking. Habits:??Tobacco: Never smoker Caffeine: 2 cups of coffee per day, between 12 and 20 oz. Alcohol: none Recreational substances: none [facility] Past Medical History Medical History Essential hypertension Factor 5 Leiden mutation, heterozygous MAG (generalized anxiety disorder) Hot flashes Hypersomnolence Kidney stones (07/13/06) passed natural Lo
[2023-09-10 14:08] VITALS: BMI 26.0
== END 2023-09-01 07:00 | disposition home or self-care (01) ==
LOC: ANHCSM 08:45
PROVIDERS: PCP Nurse Practitioner; Visit Provider Internal Medicine Critical Care Medicine
DX: G47.10 Hypersomnia, unspecified (principal)
CPT/HCPCS: 95800

== ENCOUNTER 2023-09-30 09:38 | Outpatient (CLI) | payer OTHER, SELFPAY ==
--- NOTE | 2023-10-05 13:25 | WPDSLEEPSTUD ---
Sleep Study Date of Study: 09/30/23 Ordering Provider: Anjali Blanco MD Interpreting Physician: Sara Everett, Sleep Study Type: Polysomnogram Height: 1.5 m Weight: 58.967 kg Body Mass Index: 26.2 Neck Circumference (inches): 14 [place]: 12 Reason for Sleep Study Hypersomnia * Apr 15, 2016- PSG- AHI 0.3, high sleep efficiency, short sleep onset and short REM latency; MSLT 3 m 47 sec, no SOREM, no diagnosis of narcolepsy; she was diagnosed with idiopathic hypersomnolence * 01/04/2014 - PSG-? AHI 0.3, lowest saturation 90%, periodic limb movement index 3.7;? REM latency was short, 62.5 minutes. MSLT was recommended. * 08/31/2023- HST (WatchPAT), AHI 0.3, lowest saturation 93%, sleep efficiency 86% Sleep History Tasha Gomez is a?38-year-old woman with longstanding hypersomnolence, see above study results.? Since then, she has been diagnosed with Factor V Leiden mutation and vision loss due to retinal vein occlusion without atrial fibrillation. She was referred for repeat evaluation to assure that she does not have nocturnal ischemia that would cause additional visual loss, in addition to persistent hypersomnolence.? She rarely awakens from sleep short of breath.? She occasionally wakes at night with heartburn, belching or coughing.??She? rarely snores, never snores loudly enough that others complain. She frequently has trouble sleeping when she has a cold.? She rarely wakes up gasping for breath during the night. She occasionally has breathing problems at night. She frequently sweats excessively at night. She occasionally notices her heart pounding or beating irregularly during the night.? She frequently falls asleep during the day.? She rarely falls asleep involuntarily, never falls asleep while driving. She never experiences loss of muscle tone with strong emotion.? She? occasionally feels paralyzed on waking or falling asleep. She occasionally experiences vivid dreams upon waking or falling asleep. She never feels afraid of going to sleep. She occasionally has nightmares. She occasionally recalls her dreams. She occasionally has thoughts racing through her mind. She never feels sad or depressed. She rarely feels anxiety. She occasionally notices parts of her body jerk.? She frequently kicks during the night. She frequently feels crawling or aching feelings in her legs. She frequently feels leg pain at night. She rarely has morning jaw pain,? however never grinds her teeth at night.? She never feels bothered by pain during the day, is never awakened by pain during the night. She rarely wakes up feeling stiff in the morning,? rarely wakes feeling sore or achy in the morning.? She rarely awakens with pain in her neck, spine, or joints.? she has fatigue, concentration difficulties, headaches and she takes antacids regularly. Normal bedtime is between 9:30 p.m. and 10:00 p.m., falling asleep within 15 minutes, typically waking several times at night, between 6 and 8 episodes of wakefulness, and these are for no apparent reason.? These happen soon after falling asleep, in the middle of the night and the tester sound hours.? When awake, she may possibly get a drink of water and then returns to sleep within 5-10 minutes.? Her wake time is 6:30 a.m..? On weekends, bedtime is a little later, 10:00 p.m. to 10:30 p.m. and wake time is a little later, 7:30 a.m. to 8:00 a.m.? Her excessive sleepiness interrupts her personal life, avoiding social events and intimacy at times.? she does not generally take naps in the day.? A short nap lasting 10-15 minutes is not refreshing.? She is drowsy for 2 hours after waking. Habits:??Tobacco:? Never smoker? ? ? Caffeine: 2 cups of coffee per day, between 12 and 20 oz. ? Alcohol: none ? ? Recreational substances: none [facility] Past Medical History Medical History Essential hypertension Factor 5 Leiden mutation, heterozygous MAG (generalized anxiety disorder) Hot flas
[2023-10-05 13:27] VITALS: BMI 26.2
[2023-10-05 14:08] VITALS: BMI 26.2
--- NOTE | 2023-10-05 14:08 | WPDSLEEPSTUD ---
Sleep Study Date of Study: 09/30/23 Ordering Provider: Anjali Blanco MD Interpreting Physician: Sara Everett, Sleep Study Type: Multiple Sleep Latency Test Height: 1.5 m Weight: 58.967 kg Body Mass Index: 26.2 Neck Circumference (inches): 14 [place]: 12 Reason for Sleep Study Hypersomnolence * Apr 15, 2016- PSG- AHI 0.3, high sleep efficiency, short sleep onset and short REM latency; MSLT 3 m 47 sec, no SOREMP, no diagnosis of narcolepsy; she was diagnosed with idiopathic hypersomnolence * 01/04/2014 - PSG-? AHI 0.3, lowest saturation 90%, periodic limb movement index 3.7;? REM latency was short, 62.5 minutes. MSLT was recommended. * 08/31/2023- HST (WatchPAT), AHI 0.3, lowest saturation 93%, sleep efficiency 86% Sleep History Tasha Gomez is a?38-year-old woman with longstanding hypersomnolence, see above study results.? Since then, she has been diagnosed with Factor V Leiden mutation and vision loss due to retinal vein occlusion without atrial fibrillation. She was referred for repeat evaluation to assure that she does not have nocturnal ischemia that would cause additional visual loss, in addition to persistent hypersomnolence.? She rarely awakens from sleep short of breath.? She occasionally wakes at night with heartburn, belching or coughing.??She? rarely snores, never snores loudly enough that others complain. She frequently has trouble sleeping when she has a cold.? She rarely wakes up gasping for breath during the night. She occasionally has breathing problems at night. She frequently sweats excessively at night. She occasionally notices her heart pounding or beating irregularly during the night.? She frequently falls asleep during the day.? She rarely falls asleep involuntarily, never falls asleep while driving. She never experiences loss of muscle tone with strong emotion.? She? occasionally feels paralyzed on waking or falling asleep. She occasionally experiences vivid dreams upon waking or falling asleep. She never feels afraid of going to sleep. She occasionally has nightmares. She occasionally recalls her dreams. She occasionally has thoughts racing through her mind. She never feels sad or depressed. She rarely feels anxiety. She occasionally notices parts of her body jerk.? She frequently kicks during the night. She frequently feels crawling or aching feelings in her legs. She frequently feels leg pain at night. She rarely has morning jaw pain,? however never grinds her teeth at night.? She never feels bothered by pain during the day, is never awakened by pain during the night. She rarely wakes up feeling stiff in the morning,? rarely wakes feeling sore or achy in the morning.? She rarely awakens with pain in her neck, spine, or joints.? she has fatigue, concentration difficulties, headaches and she takes antacids regularly. Normal bedtime is between 9:30 p.m. and 10:00 p.m., falling asleep within 15 minutes, typically waking several times at night, between 6 and 8 episodes of wakefulness, and these are for no apparent reason.? These happen soon after falling asleep, in the middle of the night and the early childhood assistant hours.? When awake, she may possibly get a drink of water and then returns to sleep within 5-10 minutes.? Her wake time is 6:30 a.m..? On weekends, bedtime is a little later, 10:00 p.m. to 10:30 p.m. and wake time is a little later, 7:30 a.m. to 8:00 a.m.? Her excessive sleepiness interrupts her personal life, avoiding social events and intimacy at times.? She does not generally take naps in the day.? A short nap lasting 10-15 minutes is not refreshing.? She is drowsy for 2 hours after waking. Habits:??Tobacco:? Never smoker? ? ? Caffeine: 2 cups of coffee per day, between 12 and 20 oz. ? Alcohol: none ? ? Recreational substances: none PMF[facility] Past Medical History Medical History Essential hypertension Factor 5 Leiden mutation, heterozygous MAG (generalized anxiety diso
== END 2023-10-01 13:00 | disposition home or self-care (01) ==
LOC: ANHCSM 09:38
PROVIDERS: PCP Nurse Practitioner; Visit Provider Internal Medicine Critical Care Medicine
DX: G47.10 Hypersomnia, unspecified (principal)
CPT/HCPCS: 95805; 95810

== ENCOUNTER 2023-10-08 07:47 | Outpatient (CLI) | payer OTHER, SELFPAY | END 2023-10-08 07:48 | disposition home or self-care (01) | LOC: ANHLAB 07:48 | PROVIDERS: PCP Nurse Practitioner; Visit Provider Internal Medicine Critical Care Medicine | DX: G25.81 Restless legs syndrome (principal) | CPT/HCPCS: 36415; 82728 ==

== ENCOUNTER 2023-10-13 08:54 | Outpatient (CLI) | payer OTHER, SELFPAY ==
[2023-10-13 09:33] LABS: Hematocrit 43.6 % (37.0-47.0); Hemoglobin 14.2 g/dL (12.0-15.0); Mean Corpuscular HGB Conc 32.6 g/dl (32-36); Mean Corpuscular Hemoglobin 31.3 pg (26-34); Mean Corpuscular Volume 96.2 fl (80-100); Mean Platelet Volume 9.8 fl (7.4-10.4); Platelet Count Result 315 k/mm3 (150-375); Red Blood Count 4.53 M/mm3 (4.2-5.4); White Blood Count 7.2 K/mm3 (4.5-10.0)
[2023-10-13 09:49] LABS: Alanine Aminotransferase 11 U/L (6-35); Albumin Level 4.3 g/dL (3.5-5.1); Alkaline Phosphatase 59 U/L (38-126); Anion Gap 4 mmol/L (4-12); Aspartate Amino Transferase 22 U/L (14-36); Bilirubin,Total 0.5 mg/dL (0.2-1.3); Blood Urea Nitrogen 8 mg/dL (7-17); Calcium 9.2 mg/dL (8.4-10.2); Carbon Dioxide 26 mmol/L (22-30); Chloride 107 mmol/L (98-107); Cholesterol 195 mg/dL (0-200); Estimated Glomerular Filt Rate > 60; Glucose 93 mg/dL (65-110); HDL Direct 58 mg/dL; Potassium 4.5 mmol/L (3.4-5.0); Sodium 137 mmol/L (137-145); Triglycerides 131 mg/dL (<150)
[2023-10-13 10:00] LABS: LDL Cholesterol Direct 107 mg/dL
[2023-10-13 10:32] LABS: Vitamin D 25 Hydroxy 58.6 ng/mL
[2023-10-13 11:05] LABS: Hemoglobin A1C 5.1 % (<5.7)
== END 2023-10-13 08:55 | disposition home or self-care (01) ==
PROVIDERS: PCP Nurse Practitioner; Visit Provider Nurse Practitioner
DX: Z00.00 Encounter for general adult medical examination without abnormal findings (principal); E78.5 Hyperlipidemia, unspecified; E55.9 Vitamin D deficiency, unspecified; R73.01 Impaired fasting glucose
CPT/HCPCS: 36415; 80053; 80061; 82306; 83036; 84443; 85027

== ENCOUNTER 2024-01-27 13:27 | Outpatient (CLI) | payer OTHER, SELFPAY ==
--- NOTE | ~2024-01-27 | MM_ITS ---
EXAMINATION: MM screening erica BI w ernestina HISTORY: Screening TECHNIQUE: Craniocaudal and mediolateral oblique 3-D tomosynthesis images were obtained and synthetic 2-D images were generated. CAD analysis was submitted and interpreted. COMPARISON: No prior studies for comparison. BREAST PARENCHYMAL COMPOSITION: Dense: The breasts are heterogeneously dense, which may obscure small masses FINDINGS: There is no evidence of suspicious mass, calcification, or architectural distortion to sugg est malignancy in either breast. There has been no suspicious interval change. IMPRESSION: 1. No mammographic evidence of malignancy. 2. Recommend routine screening mammography in one year. BI-RADS Category 1: Negative Reviewed, dictated and finalized at location B.
== END 2024-01-27 13:28 ==
LOC: MICIMG 13:29
PROVIDERS: PCP Nurse Practitioner; Visit Provider Obstetrics & Gynecology
DX: Z12.31 Encounter for screening mammogram for malignant neoplasm of breast (principal)
CPT/HCPCS: 77063; 77067

== ENCOUNTER 2024-03-31 12:16 | Outpatient (CLI) | payer OTHER, SELFPAY ==
[2024-03-31 12:43] LABS: Add Urine Microscopic? YES; Appearance Urine Cloudy (Clear); Bilirubin Urine Negative (Negative); Blood Urine Non-Hemolyzed Trace (Negative); Color Urine Yellow (Yellow); Glucose Urine UA Negative (Negative); Ketones Urine Trace mg/dL (Negative); Leukocyte Esterase Ur 2+ LEU/UL (Negative); Nitrate Urine Negative (Negative); Non Pathogenic Casts 0-2; Protein Urine Negative (Negative); Specific Grav Ur 1.019 (1.001-1.035); Squamous Epithelial Cell Urine Occasional /hpf (Few); Urobilinogen Urine 0.2 mg/dL (<2.0); WBC Urine 21-50 /hpf (0-3); pH Urine 5.5 (5.0-9.0)
[2024-03-31 13:02] LABS: Bacteria Urine 1+ /hpf
== END 2024-03-31 12:17 | disposition home or self-care (01) ==
LOC: ANHLAB 12:21
PROVIDERS: PCP Nurse Practitioner; Visit Provider Nurse Practitioner
DX: R30.0 Dysuria (principal)
CPT/HCPCS: 81001; 87086

== ENCOUNTER 2024-10-04 10:46 | Outpatient (CLI) | payer OTHER, SELFPAY ==
--- NOTE | ~2024-10-04 | XR_ITS ---
XR abdomen/kub 1V 10/04/2024 10:56 INDICATION: Kidney stones TECHNIQUE: KUB COMPARISON: None FINDINGS: Bowel gas pattern is normal. There is no evidence of free air, mass, organomegaly, ascites or obstruction. There are stones in the upper pole of the left kidney. There is a punctate right gautam al stone at the lower pole. The bones appear intact. IMPRESSION: 1: Bilateral nephrolithiasis.. Reviewed, dictated and finalized at location A.
== END 2024-10-04 10:47 | disposition home or self-care (01) ==
LOC: MICIMG 10:48
PROVIDERS: PCP Nurse Practitioner; Visit Provider Urology
DX: N20.0 Calculus of kidney (principal); Z87.442 Personal history of urinary calculi
CPT/HCPCS: 74018

== ENCOUNTER 2024-11-10 08:04 | Emergency (ER) | payer OTHER, SELFPAY ==
[2024-11-10 08:15] VITALS: BP 134/73; PULSE 92; RESP 16; TEMP 37.2; O2SAT 98
--- NOTE | 2024-11-10 08:18 | ED_ITS ---
HPI - Eye Problem General Chief complaint: Eye Problems Stated complaint: Right Eye Irritation Time Seen by Provider: 11/10/24 08:06 Related Data Home Medications ?Medication ?Instructions ?Recorded ?Confirmed ?Last Taken ?Type loratadine 10 mg tablet (Claritin) 10 mg PO DAILY 09/17/22 10/14/24 Unknown History cholecalciferol (vitamin D3) 50 50 mcg PO DAILY 10/15/22 10/14/24 06/19/23 History mcg (2,000 unit) capsule aspirin 81 mg chewable tablet 81 mg PO DAILY 06/22/23 10/14/24 06/18/23 History ferrous sulfate 325 mg (65 mg 325 mg PO DAILY 08/14/23 10/14/24 Unknown History iron) tablet (Talya-Time) omeprazole 20 mg capsule,delayed 20 mg PO DAILY 09/23/23 10/14/24 Unknown History release Allergies Allergy/AdvReac Type Severity Reaction Status Date / Time Sulfa (Sulfonamide Allergy Unknown hives Verified 11/10/24 08:18 Antibiotics) Review of Systems Review of Systems: CONSTITUTIONAL: Denies body aches, fever, chills EYES:Endorses swelling, redness and pain to ? eye; ? FB sensation, photophobia ? Denies visual changes ENT: Denies rhinorrhea, congestion, sore throat, or otalgia. CARDIOVASCULAR: Denies chest pain, palpitations RESPIRATORY: Denies cough or dyspnea. GASTROINTESTINAL: Denies abdominal pain, nausea, vomiting, or diarrhea. SKIN: Denies rash, itching, or wounds. MUSCULOSKELETAL: Denies back pain, joint pain, or myalgia. NEUROLOGIC: Denies headache, numbness, tingling, or weakness. [facility] Past Medical History Medical History (Updated 10/14/24 @ 11:01 by Sebastian Sewell APRN) BMI 27.0-27.9,adult Hx of headache Screening mammogram, encounter for NAION (non-arteritic anterior ischemic optic neuropathy), 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 Low vitamin D level Hypersomnolence Hot flashes Kidney stones (07/13/06) passed natural Essential hypertension Factor 5 Leiden mutation, heterozygous MAG (generalized anxiety disorder) Primary narcolepsy without cataplexy Surgical History Surgical History H/O lithotripsy (~06/12/23) H/O bilateral salpingectomy (10/02/22) Laparoscopic bilateral salpingectomy Laparoscopic left ovarian cystotomy History of gynecological procedure Hscope D&C retained placenta after delivery History of gynecological procedure Hscope suction D&C missed AB History of gynecological procedure laparoscopic removal of retained IUD device Delivery by section (08/28/19) rpt c/s History of gynecological procedure (12/25/10) mirena iud insertion History of (11/13/10) primary c/s Hx laparoscopic cholecystectomy 09/28/18 Family History Family History Sibling Asthma Family history of obesity Depression Hypertension Factor V deficiency Father Family history of diabetes mellitus in first degree relative Family history of heart disease in male family member before age 55 Diabetes mellitus Family history of obesity Patient's father is in good health Mother Family history of diabetes mellitus in first degree relative Family history of heart disease in male family member before age 55 Diabetes mellitus Hypertension Patient's mother is in good health Other Cancer Cerebrovascular accident Family history of cardiovascular disease Family history of malignant neoplasm Social History Social History (Updated 10/14/24 @ 10:42 by Trina Perez Aurelio) Smoking status: Never smoker Second hand tobacco smoke exposure: No Alcohol intake: current Alcohol use details: 1/MONTH Substance use: never Substance use type: does not use Do You Feel Safe in your Home?: Yes Lack of Transportation: No Lack of Food: Never True Current Housing: I Have Housing Concerned About Future Housing: No Difficulty Paying Gas/Electric Bills: No Difficulty Paying for Meds: No Currently Unemployed: No Education: Associate Degree Difficulty w/ Childcare or Family Care: No Living arrangements: with family Additional living arrangements comments: spouse Occupation/Education: occupation 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 Please see nursing chart for further information. There is no relevant family history pertinent to the presenting complaint. Exam Narrative: GENERAL: Well-appearing HEAD: Normocephalic, atraumatic. EYES: ?conjunctival injection, eye lid swelling/redness c/w stye. ? EOMI. ?Lid eversion * ENT: Mucous membranes pink and moist. ?No rhinorrhea. ?TMs normal bilaterally. ?Throat normal. Uvula midline. CHEST: ?Clear to auscultation. HEART: Regular rate and rhythm. ABDOMEN: Soft, nontender, nondistended SKIN: Warm, dry, no rash. ?Normal skin turgor. NEURO: No focal deficits. Alert and oriented x3 PSYCH: ?Normal affect. Course Course Level of Care: Express Care Visit Vital Signs Vital signs: Reviewed MDM - Eye Problem MDM Narrative Medical decision making narrative: Discussed physical exam findings (and xray). Advised supportive measures and signs/symptoms to go to the ER. Pt is appropriate for outpt treatment and follow up. Critical Care Time Critical Care Time Critical Care Time: No Discharge Plan Discharge Patient Language: Burmese Prescriptions: No Action cholecalciferol (vitamin D3) 50 mcg (2,000 unit) capsule 50 mcg PO DAILY ferrous sulfate [Talya-Time] 325 mg (65 mg iron) tablet 325 mg PO DAILY hydrocortisone [Anusol-HC] 2.5 % cream with perineal applicator 1 applic RECTAL DAILY PRN (Reason: hemorrhoids) Qty: 30 0RF loratadine [Claritin] 10 mg tablet 10 mg PO DAILY omeprazole 20 mg capsule,delayed release(DR/EC) 20 mg PO DAILY aspirin 81 mg Tablet,Chewable 81 mg PO DAILY Follow-up/Referrals: Sebastian Sewell, PAT [Primary Care Provider] -
--- NOTE | 2024-11-10 08:26 | ED_ITS ---
HPI - Eye Problem General Chief complaint: Eye Problems Stated complaint: Right Eye Irritation Time Seen by Provider: 11/10/24 08:06 Source: patient Mode of arrival: ambulatory Limitations: no limitations History of Present Illness HPI Narrative: Patient is a 39 year old female that presents with right eye redness, irritation and itching. States it started last night and thought it was just allergies. Reports symptoms worsened this morning. Take a daily claritin. Related Data Home Medications ?Medication ?Instructions ?Recorded ?Confirmed ?Last Taken ?Type loratadine 10 mg tablet (Claritin) 10 mg PO DAILY 09/17/22 10/14/24 Unknown History cholecalciferol (vitamin D3) 50 50 mcg PO DAILY 10/15/22 10/14/24 06/19/23 History mcg (2,000 unit) capsule aspirin 81 mg chewable tablet 81 mg PO DAILY 06/22/23 10/14/24 06/18/23 History ferrous sulfate 325 mg (65 mg 325 mg PO DAILY 08/14/23 10/14/24 Unknown History iron) tablet (Talya-Time) omeprazole 20 mg capsule,delayed 20 mg PO DAILY 09/23/23 10/14/24 Unknown History release Allergies Allergy/AdvReac Type Severity Reaction Status Date / Time Sulfa (Sulfonamide Allergy Unknown hives Verified 11/10/24 08:18 Antibiotics) Review of Systems Review of Systems: All systems reviewed & are unremarkable except as noted in HPI and below Constitutional: Constitutional: Denies body ache(s), Denies fever(s), Denies headache(s), Denies malaise and Denies weakness Eyes: Eyes: Denies blurry vision, Denies eye discharge, Reports irritation, Reports itchy eyes, Denies loss of vision and Denies eye pain ENT: Denies otalgia, Denies headache(s), Denies nasal discharge, Denies sinus pain and Denies sore throat Cardiovascular: Cardiovascular: Denies chest pain, Denies irregular heart rhythm and Denies dyspnea Respiratory: Respiratory: Denies dyspnea Gastrointestinal: Gastrointestinal: Denies abdominal pain, Denies diarrhea, Denies nausea and Denies vomiting Musculoskeletal: Musculoskeletal: Denies back pain, Denies myalgias and Denies arthralgias Integumentary/Breasts: Skin/Breast: Denies pruritus and Denies rash Neurologic: Denies headache(s), Denies loss of vision and Denies weakness Psychiatric: Psychiatric: Reports no additional psychiatric complaints Allergic/Immunologic: Allergic/Immunologic: Reports itchy eyes PMFSH Past Medical History Medical History BMI 27.0-27.9,adult Hx of headache Screening mammogram, encounter for NAION (non-arteritic anterior ischemic optic neuropathy), 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 Low vitamin D level Hypersomnolence Hot flashes Kidney stones (07/13/06) passed natural Essential hypertension Factor 5 Leiden mutation, heterozygous MAG (generalized anxiety disorder) Primary narcolepsy without cataplexy Surgical History Surgical History H/O lithotripsy (~06/12/23) H/O bilateral salpingectomy (10/02/22) Laparoscopic bilateral salpingectomy Laparoscopic left ovarian cystotomy History of gynecological procedure Hscope D&C retained placenta after delivery History of gynecological procedure Hscope suction D&C missed AB History of gynecological procedure laparoscopic removal of retained IUD device Delivery by section (08/28/19) rpt c/s History of gynecological procedure (12/25/10) mirena iud insertion History of (11/13/10) primary c/s Hx laparoscopic cholecystectomy 09/28/18 Family History Family History Sibling Asthma Family history of obesity Depression Hypertension Factor V deficiency Father Family history of diabetes mellitus in first degree relative Family history of heart disease in male family member before age 55 Diabetes mellitus Family history of obesity Patient's father is in good health Mother Family history of diabetes mellitus in first degree relative Family history of heart disease in male family member before age 55 Diabetes mellitus Hypertension Patient's mother is in good health Other Cancer Cerebrovascular accident Family history of cardiovascular disease Family history of malignant neoplasm Social History Social History Smoking status: Never smoker Second hand tobacco smoke exposure: No Alcohol intake: current Alcohol use details: 1/MONTH Substance use: never Substance use type: does not use Do You Feel Safe in your Home?: Yes Lack of Transportation: No Lack of Food: Never True Current Housing: I Have Housing Concerned About Future Housing: No Difficulty Paying Gas/Electric Bills: No Difficulty Paying for Meds: No Currently Unemployed: No Education: Associate Degree Difficulty w/ Childcare or Family Care: No Living arrangements: with family Additional living arrangements comments: spouse Occupation/Education: occupation 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 There is no relevant family history pertinent to the presenting complaint. Exam Const: General: cooperative, healthy appearing, comfortable, no acute distress and well nourished Nutritional Appearance: well nourished Orientation/consciousness: patient oriented x3 Limitations: no limitations HENMT: Head: normal to inspection, normocephalic and atraumatic Ears: external ears normal Face/Nose/Sinus: Normal external nose present, normal facial exam and face symmetric Face and sinus: normal facial exam and face symmetric Mouth: Yes lip normal Eyes: General: appearance normal, both eyes and all related structures Visual Banda: normal visual banda by confrontation Alignment and Position: alignment normal and position normal Periorbital: periorbital findings normal Eyelids: eyelids normal Conjunctivae: conjunctival abnormality right conjunctival injection diffuse Sclera: scleral abnormality right scleral injection diffuse Pupils: Equal, round and reactive pupils present EOM: EOMs intact bilaterally Direct Ophthalmoscopy: no photophobia Other: No hyphema, no foreign body under the lids. Neck: Neck: normal visual inspection, full ROM, no lymphadenopathy and no meningeal signs Chest: Chest palpation & inspection: normal inspection of the chest Resp: Effort & Inspection: normal respiratory effort and able to speak in complete sentences Auscultation: clear to auscultation bilaterally Cardio: Rate: regular rate Rhythm: regular rhythm Heart sounds: S1 normal heart sound present and S2 normal heart sound present GI: Inspection: normal to inspection Skin: General skin exam: normal color and no rashes or lesions noted Neuro: General: patient oriented x3, moves all extremities and no meningeal signs Cranial nerves: Yes Equal, round and reactive pupils present Speech: normal speech Gait exam (Neuro): Normal gait present Extrem: General: normal to inspection, full ROM and no edema Psych: Appearance: grossly normal and well kempt Mental Status: mental status grossly normal Speech and movement: Normal speech and movement present Affect: normal affect Attitude: cooperative Thought process: Normal thought process present Course Course Emergency Course: Patient is aware of diagnosis, understands and agrees to treatment plan. Anticipatory guidance given. Patient agrees to follow-up as directed and is aware of reasons to seek care at the emergency department. Portions of this record may have been created with voice recognition software Level of Care: Express Care Visit Vital Signs Vital signs: Vital Signs Temperature 37.2 C 11/10/24 08:15 Pulse Rate 92 11/10/24 08:15 Respiratory Rate 16 11/10/24 08:15 Blood Pressure 134/73 11/10/24 08:15 Pulse Oximetry 98 11/10/24 08:15 Oxygen Delivery Room Air 11/10/24 08:15 Temperature 37.2 C 11/10/24 08:15 Pulse Rate 92 11/10/24 08:15 Respiratory Rate 16 11/10/24 08:15 Blood Pressure 134/73 11/10/24 08:15 Pulse Oximetry 98 11/10/24 08:15 Oxygen Delivery Room Air 11/10/24 08:15 Reviewed MDM - Eye Problem MDM Narrative Medical decision making narrative: Right eye with injection but no discharge. No vision changes. Pt well hydrated appearing, in no respiratory distress, hemodynamically stable. Recommend supportive care. The patient is stable at time of discharge the clinical impression was discussed and the patient was given the opportunity to ask questions, which were addressed as completely as possible given the information available at present. Anticipatory guidance and return to care precautions were discussed and the importance of primary care follow-up was stressed and encouraged. The patient voiced understanding of the plan, indications to return, and the need for follow-up. Exam findings show no acute concerns or changes Patient is appropriate for outpatient treatment and follow-up. Differential Diagnosis Differential diagnosis: Likely corneal abrasion, conjunctivitis and periorbital cellulitis Medical Records Attestation: I reviewed the patient's medical records. Discharge Plan Discharge Clinical Impression: Bacterial conjunctivitis Patient Disposition: Home Condition: Stable Instructions: Conjunctivitis (ED) Additional Instructions: Eye drops as prescribed. Start with just right eye and if it spreads to left use drops in both. -Do this for 3 to 4 days until all redness and discharge has disappeared. -Cold compresses to the affected eye for comfort -May need warm compresses to remove debris in the morning -When cleaning the eyes used a washcloth/cotton ball in one direction then change washcloths/cotton ball before using it on another eye. -Do not share medicine--do not touch the eye with the medicine -Alternate or take Tylenol or ibuprofen as directed in the bottle for pain -Avoid screen time--television, computer, tablet or phone. -Practice good handwashing and hygiene to prevent spread of infection Follow-up with PCP or outside event sales specialist if condition is not improving in 2-3days. Go to the emergency room if you have pain behind your eye, pressure behind her eye, difficulty seeing, or other severe symptoms Patient Language: Italian Prescriptions: New ofloxacin 0.3 % drops See Rx Instructions .ROUTE .COMPLEX Qty: 15 0RF Rx Instructions: put 1-2 drps into right eye every 2-4 h x 2 days, then 1-2 drps 4 times/day days 3-7 No Action cholecalciferol (vitamin D3) 50 mcg (2,000 unit) capsule 50 mcg PO DAILY ferrous sulfate [Talya-Time] 325 mg (65 mg iron) tablet 325 mg PO DAILY hydrocortisone [Anusol-HC] 2.5 % cream with perineal applicator 1 applic RECTAL DAILY PRN (Reason: hemorrhoids) Qty: 30 0RF loratadine [Claritin] 10 mg tablet 10 mg PO DAILY omeprazole 20 mg capsule,delayed release(DR/EC) 20 mg PO DAILY aspirin 81 mg Tablet,Chewable 81 mg PO DAILY Follow-up/Referrals: Sebastian Sewell APRN [Primary Care Provider] - Time of Disposition: 08:35
== END 2024-11-10 08:40 | disposition home or self-care (01) ==
PROVIDERS: PCP Nurse Practitioner
DX: H10.9 Unspecified conjunctivitis (principal); I10 Essential (primary) hypertension; D68.51 Activated protein C resistance; E55.9 Vitamin D deficiency, unspecified; H47.012 Ischemic optic neuropathy, left eye
CPT/HCPCS: 99213; G0463

== ENCOUNTER 2025-03-20 13:39 | Outpatient (CLI) | payer OTHER, SELFPAY ==
--- NOTE | ~2025-03-20 | MM_ITS ---
EXAMINATION: MM screening erica BI w ernestina HISTORY: Screening TECHNIQUE: Craniocaudal and mediolateral oblique 3-D tomosynthesis images were obtained and synthetic 2-D images were generated. CAD analysis was submitted and interpreted. COMPARISON: 01/27/2024 BREAST PARENCHYMAL COMPOSITION: The breasts are heterogeneously dense, which may obscure small masses. FINDINGS: There is no evidence of suspicious mass, calcification, or architectural distortion to suggest malignancy in either breast. IMPRESSION: 1. No mammographic evidence of malignancy. 2. Recommend routine screening mammography in one year. BI-RADS Category 1: Negative Reviewed, dictated and finalized at location B.
== END 2025-03-20 13:40 | disposition home or self-care (01) ==
LOC: MICIMG 13:39
PROVIDERS: PCP Nurse Practitioner; Visit Provider Obstetrics & Gynecology
DX: Z12.31 Encounter for screening mammogram for malignant neoplasm of breast (principal)
CPT/HCPCS: 77063; 77067

== ENCOUNTER 2025-06-30 10:26 | Outpatient (CLI) | payer OTHER, SELFPAY ==
--- NOTE | ~2025-06-30 | XR_ITS ---
EXAM/PROCEDURE: XR abdomen/kub 1V HISTORY: HX OF KIDNEY STONES COMPARISON: October 04, 2024 TECHNIQUE: KUB FINDINGS: Punctate calcifications overlying the upper pole of the left kidney and lower pole right kidney similar to the previous exam. Visualized bowel gas pattern is nonspecific; bones appear intact and lung bases clear. IMPRESSION: Probable bilateral kidney stones similar in appearance to the October 04 exam. Reviewed, dictated and finalized at location A. ICAL ADMINISTRATOR
--- OUTSIDE RECORDS SUMMARY | 2025-06-30 10:58 | XMS_ITS | Clinical Summary ---
Author Organization [facility] [place] Address [address] [place] [address] Care Team Providers Care Pouncer Name Role Phone Lucian Smith MD Primary Care Provider [phone] Source Comments [facility],non-owned Affiliates and Associated Physician Practices is amultiple site organization consisting of ambulatory clinics and hospital sitesin [place], [place], [place] and [place]. This disclosure is being madepursuant to the Care Everywhere program and may not contain all information available regarding this patient. Last updated 18.[facility] [place] Allergies Active Allergy Reactions Criticality Noted Date Comments Sulfa Drugs Rash,Urticaria Medium 09/25/2015 Medications * Be aware that medications may not be up to date on this document. Alwaysverify current medications with the patient. Vit-Fe Fumarate-FA ( VITAMIN) 27-0.8 MG tablet Take 1 tablet by mouth once daily Active docusate sodium (COLACE) 100 MG capsuleIndicati ons:Constipatio n Take 1 capsule by mouth 2 times daily as needed for Constipation Reasons: Constipation 60 capsule 2 0 Active ferrous sulfate 325 (65 FE) MG tablet Take 1 tablet by mouth once daily 100 tablet 0 Active norethindrone (ORTHO MICRONOR; NOR-QD; SINAI; ANDREY; BELINDA-BE; JENNIFER; JOLIVETTE) 0.35 MG tablet Take 1 tablet by mouth once daily 90 tablet 4 0 Active Active Problems Problem Noted Date Diagnosed Date care following delivery 08/14 Assessment & Plan (10/06/2019 10:09 AM CDT): mood stable baby doing well Desires oral contraception and was counseled on this method-- rx provided Reminder provided for pap smear due May 2020 [facility] be discharged from [facility] Assessment & Plan (09/08/2019 2:40 PM STAIN MAKER): mood stable, baby doing well Breast feeding Incision healing well Motrin only for pain Pre-existing essential hyper tension during , antepartum 03/27/2016 Overview (09/08/2019): Was on antihypertensives for 2 years following her last but then has been able to be off medication for 1 year prior to her G5 . Assessment & Plan (10/06/2019 10:07 AM CDT): BP appropriate without medication Encouraged exercise Assessment & Plan (09/08/2019 2:39 PM STAIN MAKER): No current signs of preeclampsia--at risk from delivery To check home blood pressure Precautions given Instructed to walk for exercise RTC in 1 wk for RN visit for BP check IF SBP >/= 140 Or DBP >/= 95 then start on Amlodipine 5 mg PO daily Assessment & Plan (08/25/2019 6:13 PM STAIN MAKER): Blood pressure gradually trending up over the last few weeks. No complaints of preeclampsia today, but cannot exclude the effect of nifedipine. I discussed my aversion to ambulatory use of nifedipine, for the purpose of tocolysis, especially in the context of her pre-existing hypertension and history of preeclampsia Plan: 1. Home blood pressure monitoring 1. Prompting report any values greater than or equal to 160/100 2. Preeclampsia precautions reviewed 3. Continue weekly biophysical profile 4. Delivery initiation at 39 weeks 5. Would benefit from breast-feeding 6. Warrants blood pressure evaluation 1 week Assessment & Plan (07/04/2019 4:26 PM STAIN MAKER): Increased blood pressure noted today compared to prior regiments. Asymptomatic. Likely physiologic increase in blood pressure due to pre-existing chronic hypertension and current gestational ageNo current indication for antihypertensive medication. No sign of antiphospholipid antibody syndrome by laboratory criteria. Estimated weight appropriate today. Plan: Repeat complete metabolic profile added to 3TM labs drawn today Preeclampsia precautions emphasized Continue aspirin for preeclampsia risk reduction Serial growth every 4 weeks--next assessment in 4 weeks Weekly 10 point BPP starting at 32 weeks Delivery initiation at 39 weeks Assessment & Plan (06/06/2019 8:57 PM STAIN MAKER): Blood pressure appropriate without antihypertensive medication. No sign of antiphospholipid antibody syndrome Continue aspirin for preeclampsia risk reduction Serial growth every 4 weeks Weekly 10 point BPP starting at 32 weeks Delivery initiation at 39 weeks Assessment & Plan (05/26/2019 4:10 PM STAIN MAKER): Blood pressure appropriate Never had Beta 2 glycoprotein or Lupus anticoagulant processed--reordering these tests today Continue aspirin for preeclampsia risk reduction Serial growth every 4 weeks Weekly 10 point BPP starting at 32 weeks Delivery initiation at 39 weeks Assessment & Plan (05/06/2019 1:07 PM CDT): Blood pressure appropriate without antihypertensives. Beta-2 glycoprotein result ordered but not in process Warrants aspirin for preeclampsia risk reduction Serial growth every 4 weeks Weekly 10 point BPP starting at 32 weeks Delivery initiation at 39 weeks Resolved Problems Problem Noted Date Diagnosed Date Resolved Date Elevated blood pressure read ing in office with diagnosis of hypertension 09/08/2019 0 Threatened labor, third trimester 08/16/2019 09/08/2019 Overview (08/25/2019): received corticosteroids [08/16-11/29] Assessment & Plan (08/25/2019 6:15 PM STAIN MAKER): Remains at risk for delivery. Not a candidate for rescue course of corticosteroids Plan: labor precautions emphasized Weekly visits until delivery Gestational hypertension 07/26/2019 Cervical cerclage suture present, antepartum 9 08/25/2019 Assessment & Plan (07/04/2019 4:18 PM STAIN MAKER): Plan to remove at 36 weeks Previous delivery, antepartum 05/06/2019 09/08/2019 Assessment & Plan (08/25/2019 6:16 PM STAIN MAKER): Strongly desires repeat delivery High risk in young multigravida, antepartum 05/06/2019 09/08/2019 Overview (05/26/2019): Anatomy survey: completed, no major malformations, Lower uterine segment synechia (2) S/p Flu vaccine Assessment & Plan (07/04/2019 4:18 PM STAIN MAKER): 3TM labs drawn today Assessment & Plan (06/06/2019 8:57 PM STAIN MAKER): 1 hour GCT at next PNV in 4 weeks Placenta succenturiata, antepartum 05/06/2019 09/08/2019 Overview (05/06/2019): Posterior placenta with accessory anterior lobe Assessment & Plan (08/25/2019 6:15 PM STAIN MAKER): Plan: Serial growth every 4 weeks 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 Assessment & Plan (06/06/2019 8:54 PM STAIN MAKER): Synechiae remains near cerclage suture Assessment & Plan (05/26/2019 4:10 PM STAIN MAKER): Synechiae now near cerclage suture Assessment & Plan (05/06/2019 1:43 PM CDT): Reevaluate over time to reassess relationship of synechiae to cervix Uterine cramping 05/01/2019 05/01/2019 Retained products of concept ion without hemorrhage but with other complication 11/07/2015 1 Hypertension in , p reeclampsia, severe, delivered 11/05/2015 05/06/2019 care and examinat ion immediately after delivery 11/05/2015 05/06/2019 contractions 09/25/2015 019 Cervical insufficiency durin g in second trimester, antepartum 09/25/2015 05/06/2019 Subchorionic hemorrhage in first trimester 12/19/2014 09/25/2015 Unsure of LMP (last menstrua l period) as reason for ultrasound scan 12/13/2014 09/25/2015 Short cervical length during in second trimester 09/08/2019 Overview (08/25/2019): cerclage placement at 20 w Status post cerclage removal Assessment & Plan (08/25/2019 6:14 PM STAIN MAKER): Assessment & Plan (07/04/2019 4:16 PM STAIN MAKER): Asymptomatic. Continue vaginal progesterone Assessment & Plan (06/06/2019 8:56 PM STAIN MAKER): Still with cervical shortening but stable measurement. Asymptomatic. Continue vaginal progesterone Instructed to notify us if: leaking, vaginal bleeding or abnormal vaginal discharge No further asymptomatic cervical length surveillance labor precautions emphasized Assessment & Plan (05/26/2019 4:12 PM STAIN MAKER): Continue vaginal progesterone Instructed to notify us if: leaking, vaginal bleeding or abnormal vaginal discharge One last cervical length in 2 weeks Assessment & Plan (05/06/2019 1:02 PM CDT): Left to right asymmetry of the cervix noted on today's exam. The longer side measurement is 27 mm, which is stable compared to the exam 1 week ago; the shorter side measures 23 mm. Thick [6mm wide] uterine synechia at the internal cervical os connecting the superior and inferior aspect of the lower uterine segment, with increased vascularity. Second thinner synechia just proximal to the cervical area measures approximately 3 mm in thickness; also connecting superior inferior aspect of the lower uterine segment. Obstetric history is not classic for cervical insufficiency due to the large blood clot that she had earlier in the first trimester prior to her previable PPROM at 15 weeks, which was also complicated by hypertension. Discussed options including: no intervention, medical management with vaginal progesterone, adjunct use of a vaginal pessary or surgical management with a cerclage. Reviewed the risks and benefits of each intervention. After discussion the patient was not ready to make a decision regarding which treatment she preferred. She was amenable to starting with a vaginal progesterone and a cervical pessary which was placed. Recommend follow-up in 1 week to reevaluate cervical length Screening, , for ma lformation by ultrasound 05/06/2019 demise, greater than 2 2 weeks, delivered, current hospitalization 05/06 Severe preeclampsia 05/06/20 19 HELLP syndrome (HELLP), second trimester 05/06/2019 18 weeks gestation of 05/09/2019 Evaluate anatomy not seen on prior sonogram 05/09/2019 26 weeks gestation of 07/18/2019 Encounter for ultrasound to check growth 07/04/2019 34 weeks gestation of 09/08/2019 Immunizations Immunization Administration Dates Next Due FLU VACCINE QUAD IIV4 SPLIT 0.25 ML IM 9 HEP B VACCINE, ADULT 3 DOSE 06/30/2019, 9,12/24/2018 TDAP (7yrs+) 07/18/2019 iNFLUENZA VACCINE, RECOM-CHANEL, QUADR. (FLUBLOCK QUADRIVALENT; 18Y+) (RIV4) 04/11/2019 Family History Medical History Relation Name Comments Diabetes - Type 2 Father Hypertension Father Cancer - Breast Maternal Aunt Phlebitis/Blood Clot Maternal Aunt Diabetes - Type 2 Mother Hypertension Mother CAD (Coronary Artery Disease) Paternal Uncle heart attack Relation Name Status Comments Father Alive Maternal Aunt Maternal Grandfather Maternal Grandmother Mother Alive Paternal Grandfather Paternal Grandmother Paternal Uncle Social History Tobacco Use Types Packs/Day Years Used Date Smoking Tobacco: Never Smokeless Tobacco: Never Tobacco Cessation:Counseling Given: Yes Alcohol Use Standard Drinks/Week Comments No 0 (1 standard drink = 0.6 oz pur e alcohol) not during Comments No Sex and Gender Information Value Date Recorded Sex Assigned at Not on file Legal Sex Female 8:09 AM CDT Gender Identity Not on file Sexual Orientation Not on file 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 Not on file Not on fi le Last Filed Vital Signs Vital Sign Reading Time Taken Comments Blood Pressure 126/84 10/06/2019 9:14 AM CDT Pulse 64 10/06/2019 9:14 AM CDT Temperature 36.6 C (97.9 F) 10/06/2019 9:14 AM CDT Respiratory Rate 18 09/01/2019 7:50 AM STAIN MAKER Oxygen Saturation 100% 09/01/2019 7:50 AM STAIN MAKER Inhaled Oxygen Concentration - - Weight 57.6 kg (127 lb) 10/06/2019 9:14 AM CDT Height 149.9 cm (4' 11) 10/06/2019 9:14 AM CDT Body Mass Index 25.65 10/06/2019 9:14 AM CDT Plan of Treatment Health Maintenance Due Date Last Done Comments HPV VACCINE (1 - 3-dose SCDM series) 2014 DEPRESSION SCREENING 07/13/2024 COVID-19 VACCINE ( - season) 2025 INFLUENZA VACCINE (#1) 2025 04/11/2019, 2018 DTAP/TDAP/TD VACCINES (2 - Td or Tdap) 07/18/2029 07/18/2019 ZOSTER VACCINE (1 of 2) 2037 HEPATITIS C SCREENING Completed 11/06/2015 Cervical Cancer Screening Discontinued PAP SMEAR Discontinued 05/15/2017 (Done Outside Per Report), 05/15/2017 (Done Outside Per Report), 07/15/2016 (Done Outside Per Report) HEPATITIS B VACCINE Completed 06/30/2019, 01/24/2019, 12/24/2018 HIV SCREENING Completed 07/04/2019 HIB VACCINE Aged Out No longer eligi ble based on patient's age to complete this topic MENINGOCOCCAL (Group B) VACCINE SHARED DECISION-MAKING Aged Out No longer eligible based on patient's age to complete this topic MENINGOCOCCAL GROUPS A/C/Y/W VACCINE Aged Out No longer eligible based on patient's age to complete this topic PAP with HPV Discontinued PNEUMOCOCCAL VACCINE Aged Out No long er eligible based on patient's age to complete this topic Procedures Procedure Name Priority Date/Time Associated Diagnosis Comments HIV-1 HIV-2 ANTIBODY + HIV P24 AG PANEL 07/04/2019 2:34 PM STAIN MAKER HEPATITIS SCREEN ACUTE Routine 11/06/2015 10:28 AM CDT from Last 3 Months or Most Recently Relevant to Health Maintenance Results * HIV-1 HIV-2 ANTIBODY + HIV P24 AG PANEL (07/04/2019 2:34 PM STAIN MAKER) Pathologist [facility] HIV Screen 4th Generation w Reflex NON-REACT PANDA NON-REACT PANDA [facility] Comment: HIV-1 antigen and HIV-1/HIV-2 antibodies were not detected. There is no laboratory evidence of HIV infection. PLEASE NOTE: This information has been disclosed to you from records whose confidentiality may be protected by state law. If your state requires such protection, then the state law prohibits you from making any further disclosure of the information without the specific written consent of the person to whom it pertains, or as otherwise permitted by law. A general authorization for the release of medical or other information is NOT sufficient for this purpose. For additional information please refer to http://education.Foodtoeat/faq/TRR653 (This link is being provided for informational/ educational purposes only.) The performance of this assay has not been clinically validated in patients less than 2 years old. Test Performed at: [facility] [address] [place] [address] FELA ANN DO,MPH 07/04/2019 2:34 PM STAIN MAKER 07/04/2019 2:35 PM STAIN MAKER Lexi Carrillo MD LAB - CHEMISTRY ORDERABLE S Final Result Performing Organization Address City/State/[facility] Co wv Phone Number [facility] [address] [place] [address] * HEPATITIS SCREEN ACUTE (11/06/2015 10:28 AM CDT) [facility] H[facility] Antibody IgM Non Reactive Non Reactive 11/06/2015 12:38 PM CDT [facility] HBsAg Non Reactive Non Reactive 11/06/2015 12:38 PM CDT [facility] HBc Antibody IgM Non Reactive Non Reactive 11/06/2015 12:38 PM CDT [facility] HCV Antibody Screen Non Reactive Non Reactive 11/06/2015 12:38 PM CDT [facility] HCV S/C Ratio <0.02 0.00 - 0.79 11/06/2015 12:38 PM CDT [facility] Comment: Auijbf-rt-yhukpv ratio (S/CO) <0.80: Non Reactive Blood BLOOD SPECIMEN / Unknown Venipuncture / Unknown 11/06/2015 10:28 AM CDT 11/06/2015 10:38 AM CDT Narrative [facility] - 11/06/2015 12:38 PM CDT Non Reactive - Antibodies to Hepatitis C virus (HCV) were not detected, result does not exclude early acute HCV infection. Non Reactive - Antibodies to Hepatitis C virus (HCV) were not detected, result does not exclude early acute HCV infection. Shelli Rico MD LAB - CHEMISTRY ORDERABLES [facility] Result Performing Organization Address City/State/[facility] Co de Phone Number [facility] [address] [place] [address] from Last 3 Months or Most Recently Relevant to Health Maintenance Insurance [facility] Advance Directives * Full Code (Latest Code Status on File) Date Activated Date Inactivated Comments 08/28/2019 2:39 AM 09/01/2019 12:31 PM * Full Code Date Activated Date Inactivated Comments 08/28/2019 1:28 AM 08/28/2019 2:39 AM * Full Code Date Activated Date Inactivated Comments 08/26/2019 8:00 PM 08/26/2019 11:26 PM * Full Code Date Activated Date Inactivated Comments 08/24/2019 11:02 AM 08/24/2019 4:26 PM * Full Code Date Activated Date Inactivated Comments 08/16/2019 5:55 PM 08/18/2019 3:45 PM Care Teams Pouncer Relationship Specialty Start Date End Date Lucian Smith MD [address] [place] [address] PCP - General 04/15/19
--- OUTSIDE RECORDS SUMMARY | 2025-06-30 10:58 | XMS_ITS | Encounter Summary ---
Author Organization [facility] Address [address] [place] [address] Phone Care Team Providers Care Pipe Crew Foreman Name Role Phone Sebastian Sewell NP Primary Care Provider Encounter Details Date Type Department Care Team (Latest Contact Info) Description 04/22/2023 Orders Only [facility] Scanning, Provider Social History Tobacco Use Types Packs/Day Years Used Date Smoking Tobacco: Never Smokeless Tobacco: Never PHQ-2 Answer Date Recorded PHQ-2 Total Score (If total score is 3 or more points, staff should administer the PHQ-9) 0 12/29/2022 Personal Safety Answer Date Recorded Have you ever been in or are you currently in a harmful physical or emotional relationship or is someone making you feel afraid or unsafe? 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[employer] Gender Identity Not on file Sexual Orientation Not on file documented as of this encounter Plan of Treatment Not on file documented as of this encounter Procedures Procedure Name Priority Date/Time Associated Diagnosis Comments SCAN - LABS 04/22/2023 documented in this encounter Results * SCAN - LABS (04/22/2023) us Provider Scanning Final Result documented in this encounter Visit Diagnoses Not on filedocumented in this encounter Care Teams Pipe Crew Foreman Relationship Specialty Start Date End Date Sebastian Sewell ADMINISTRATIVE FELLOW [address] [place] [address] PCP - General Nurse Practitioner 01/02/23 documented as of this encounter
--- OUTSIDE RECORDS SUMMARY | 2025-06-30 10:58 | XMS_ITS | Clinical Summary ---
Author Organization [facility] Address [address] [place] [address] Care Team Providers Care Second Vp Hr Assessment Name Role Phone Sebastian Sewell NP Primary Care Provider [phone] Allergies Active Allergy Reactions Criticality Noted Date Comments Sulfa (Sulfonamide Antibiotics) Rash,Urticaria,Hives Mediu m 09/25/2015 Medications loratadine (CLARITIN) 10 mg tablet Take 1 tablet (10 mg total) by mouth daily Active cholecalciferol (VITAMIN D-3) 2000 unit capsule 1 capsule (2,000 Units total) Active famotidine (PEPCID) 10 mg tablet Take 1 tablet (10 mg total) by mouth 2 (two) times a day Active apixaban (ELIQUIS) 5 mg tabletIndications :Central retinal vein occlusion, unspecified complication status, unspecified laterality (HCC) Take 1 tablet (5 mg total) by mouth 2 (two) times a day 60 tablet 2 3 Active Active Problems Problem Noted Date Diagnosed Date Vision loss of left eye 01/30/2023 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 Patient had an MRI/ MRV brain and orbits with without on 12/28/2022 for monocular vision loss which was unremarkable. Found to have CRVO. FA on 12/31/22 consistent with CRVO. Assessment & Plan (01/09/2025 9:08 AM CDT): Exam stable without CME on OCT. No NV on anterior, posterior or gonioscopy exam. RTC 6 months - OCT mac and DFEx OU UES/TAYLA Assessment & Plan (03/04/2024 6:26 PM CDT): Patient initially seen in ED 12/29/2022 with concern for CRVO vs cilioretinal artery occlusion Hx Factor V Leiden carrier, severe pre-eclampsia, but non-smoker, no sig HTN, HLD, DMII, not on OCP. Seeing hematology for hypercoag work up, was on eliquis for 3 months, now on baby aspirin FA 12/31/22 consistent with CRVO Continues to be stable. No cystoid macular edema (CME) today Plan - Follow annually with optometry for MRx and DFE OU Assessment & Plan (05/01/2023 5:22 PM CDT): Maintain scheduled followups with retina no residual cystoid macular edema (CME) on most recent OCT. Assessment & Plan (04/22/2023 2:14 PM CDT): Patient initially seen in ED 12/29 with concern for CRVO and cilioretinal artery occlusion Hx Factor V Leiden carrier, severe pre-eclampsia, but non-smoker, no sig HTN, HLD, DMII, not on OCP. Seeing hematology for hypercoag work up, was on eliquis for 3 months, now on baby aspirin FA 12/31/22 consistent with CRVO Stable, ok to monitor with general/optom in 3 months Assessment & Plan (02/25/2023 2:35 PM CDT): Patient initially seen in ED 12/29 with sudden onset painless wagner band across central vision found to have exam with nerve edema +APD, central VA/color loss, and exam concern for non-ischemic CRVO and cilioretinal artery occlusion. Hx Factor V Leiden carrier, severe pre-eclampsia, but non-smoker, no sig HTN, HLD, DMII, not on OCP. FA 12/31/22 consistent with CRVO (with venous non-perfusion temporally) but no arterial defect. Vision loss/APD/color loss in absence of CL/CRAO then likely consistent with NAION (pt also with contralateral 0.05 disc at risk, though no hypotension/BP meds). Possible NAION was initially insult which subsequent nerve edema provoked CRVO. Today fluid resolved and disc edema nearly resolved. For now, given improvement of vision, disc edema, and IRF/SRF, will continue to watch closely. No NVI/NVA on exam today. -- Counseled pt on findings -- She has hematology referral on Thursday to consider any further hyper- coagulable w/u considering atypical demographics and lack of other risk factors for NAION/CRVO other than [id number] -- Continue ASA 325mg, can likely d/c atorva (per neuro okay if no e/o MEDINA) as long as no inner retinal thinning c/w MEDINA develops -- CTM to ensure no NVI/NVA develops RTC UES Retina 8 weeks w/ DFE OU, OCT RFNL and macula OU Assessment & Plan (02/13/2023 2:38 PM CDT): Follow with retina as scheduled Assessment & Plan (01/21/2023 1:00 PM CDT): Patient initially seen in ED 12/29 with sudden onset painless wagner band across central vision found to have exam with nerve edema +APD, central VA/color loss, and exam concern for non-ischemic CRVO and cilioretinal artery occlusion. Hx Factor V Leiden carrier, severe pre-eclampsia, but non-smoker, no sig HTN, HLD, DMII, not on OCP. FA 12/31/22 consistent with CRVO (with venous non-perfusion temporally) but no arterial defect. Vision loss/APD/color loss in absence of CL/CRAO then likely consistent with NAION (pt also with contralateral 0.05 disc at risk, though no hypotension/BP meds). Possible NAION was initially insult which subsequent nerve edema provoked CRVO. Today vision significant improved and IRF/SRF improving. Disc edema is improved compared to prior image as well. HVF today w/ some cecocentral areas of loss (and enlarged blindspot). For now, given improvement of vision, disc edema, and IRF/SRF, will continue to watch closely. No NVI/NVA on exam today. -- Counseled pt on findings -- She has hematology referral on Thursday to consider any further hyper- coagulable w/u considering atypical demographics and lack of other risk factors for NAION/CRVO other than [id number] -- Continue ASA 325mg, can likely d/c atorva (per neuro okay if no e/o MEDINA) as long as no inner retinal thinning c/w MEDINA develops -- CTM to ensure no NVI/NVA develops RCT 3-4 week w/ DFE OU, HVF 10-2 OS, OCT RFNL and macula OU Assessment & Plan (01/01/2023 7:34 AM CDT): Patient initially seen in ED 12/29 with sudden onset painless wagner band across central vision found to have exam with nerve edema +APD, central VA/color loss, and exam concern for non-ischemic CRVO and cilioretinal artery occlusion. Hx Factor V Leiden carrier, severe pre-eclampsia, but non-smoker, no sig HTN, HLD, DMII, not on OCP. FA today consistent with CRVO (with venous non-perfusion temporally) but no arterial defect. Vision loss/APD/color loss in absence of CL/CRAO then likely consistent with NAION (pt also with contralateral 0.05 disc at risk, though no hypotension/BP meds). Possible NAION was initially insult which subsequent nerve edema provoked CRVO. Level of vision loss may be impacted from significant SRF which is non- contiguous with nerve on OCT and may be partially 2/2 CRVO. 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 Sx eliminated with prism. 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 MRI wnl as were thyroid and MG labs. visual field (VF) normal/full each eye. She is going well with fresnel prism. RTC 5 mos - if measurements still stable, will rx ground in prism. 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 Last Assessment & Plan: BP appropriate without medication Encouraged exercise Bipolar affective disorder 02/23/2015 Encounter for contraceptive management 5 Resolved Problems Problem Noted Date Diagnosed Date Resolved Date Diplopia 07/02/2021 05/01/2023 Assessment & Plan (07/02/2021 5:39 PM DELICATESSEN STORE MANAGER): bilateral ABduction deficits worse in the right eye. Differential diagnoses include thyroid eye disease, ocular myasthenia, verses bilateral 6th nerve palsies. There is no optic disc edema in either eye. Return in 3 weeks to recheck alternating cover test measurements. Recommend patient go to the optical for for now prism placement. 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 - (Added by Conv) Bipolar disorder Bipolar disorde r - (Added by Conv) Family History Medical History Relation Name Comments Diabetes Father Family history of diabetes mellitus - (Added by Conv) Heart disease Father Family history of cardiac disorder - (Added by Conv) Hypertension Father Family history of hypertension - (Added by Conv) Cataracts Mother Diabetes Mother Family history of diabetes mellitus - (Added by Conv) Heart disease Mother Family history of cardiac disorder - (Added by Conv) Hypertension Mother Family history of hypertension - (Added by Conv) Relation Name Status Comments Father Mother Social History Tobacco Use Types Packs/Day Years [...] on file Legal Sex Female 10:19 AM DELICATESSEN STORE MANAGER Gender Identity Not on file Sexual Orientation Not on file Last Filed Vital Signs Vital Sign Reading Time Taken Comments Blood Pressure 137/66 04/24/2023 11:26 AM CDT Pulse 85 04/24/2023 11:26 AM CDT Temperature 36.7 C (98 F) 04/24/2023 11:26 AM CDT Respiratory Rate 18 04/24/2023 11:26 AM CDT Oxygen Saturation 97% 04/24/2023 11:26 AM CDT Inhaled Oxygen Concentration - - Weight 57.2 kg (126 lb) 04/24/2023 11:26 AM CDT Height 149.9 cm (4' 11) 01/30/2023 12:13 PM CDT Body Mass Index 25.45 01/30/2023 12:13 PM CDT Plan of Treatment Health Maintenance Due Date Last Done Comments Cervical Cancer Screening 1987 Hepatitis C Screening 1987 Varicella Vaccines (1 of 2 - 13+ 2-dose series) 2000 Regular Well Visit/Exam 18-64 2005 HPV Vaccines (1 - 3-dose SCDM series) 2014 Depression Screening 12/28/2023 12/27/2022 Covid-19 Vaccine ( season) 2025 04/15/2024, 04/06/2023, 04/27/2022, Additional history exists Influenza Vaccine (#1) 2025 , 04/06/2023, 04/27/2022, Additional history exists DTaP/Tdap/Td Vaccine (2 - Td or Tdap) 07/18/2029 07/18/2019 Hepatitis B Screening Completed 06/30/2019 , 01/24/2019, 12/24/2018 Pneumococcal vaccine <65 Aged Out No longer eligible based on patient's age to complete this topic Insurance [employer] Advance Directives For more information, please contact: [phone] * Full Code (Latest Code Status on File) Date Activated Date Inactivated Comments 12/28/2022 2:59 PM 12/29/2022 7:23 PM Care Teams Second Vp Hr Assessment Relationship Specialty Start Date End Date Sebastian Sewell NP [address] [place] [id number] PCP - General Nurse Practitioner 01/02/23
== END 2025-06-30 10:27 | disposition home or self-care (01) ==
PROVIDERS: PCP Nurse Practitioner; Visit Provider Urology
DX: Z87.442 Personal history of urinary calculi (principal)
CPT/HCPCS: 74018

== ENCOUNTER 2025-06-30 12:10 | Emergency (ER) | payer OTHER, SELFPAY ==
[2025-06-30 12:19] VITALS: BP 135/92; PULSE 82; RESP 16; TEMP 36.6; O2SAT 98
--- NOTE | 2025-06-30 12:23 | ED.EAR ---
HPI - Ear Problem General Chief complaint: Ear Stated complaint: Vertigo/Ears Irritation Time Seen by Provider: 06/30/25 12:23 Source: patient, RN notes reviewed and old records reviewed Mode of arrival: ambulatory Limitations: no limitations History of Present Illness HPI Narrative: 40 year old female who presents to [facility] care with complaints of having some right ear discomfort and hearing feeling muffled in right ear. Patient reports that she has been also experiencing some dizziness. Patient reports has never experienced dizziness before , doesn't seem to be related to position changes and patient reports that room does not spin. Patient reports no cough, no fevers, chills or body aches MD Complaint: ear pain and decreased hearing (muffled and dizziness) Location: right ear Duration: intermittent Discharge from ear: Reports no Treatment prior to arrival: none Related Data Home Medications ?Medication ?Instructions ?Recorded ?Confirmed ?Last Taken ?Type loratadine 10 mg tablet (Claritin) 10 mg PO DAILY 09/17/22 04/11/25 Unknown History cholecalciferol (vitamin D3) 50 50 mcg PO DAILY 10/15/22 04/11/25 06/19/23 History mcg (2,000 unit) capsule aspirin 81 mg chewable tablet 81 mg PO DAILY 06/22/23 04/11/25 06/18/23 History omeprazole 20 mg capsule,delayed 20 mg PO DAILY 09/23/23 04/11/25 Unknown History release Allergies Allergy/AdvReac Type Severity Reaction Status Date / Time Sulfa (Sulfonamide Allergy Unknown hives Verified 06/30/25 12:13 Antibiotics) Review of Systems Review of Systems: CONSTITUTIONAL: Denies fever, chills, or sweats. EYES: Denies visual changes, redness, or discharge. ENT: Denies rhinorrhea, congestion, sore throat, right otalgia. CARDIOVASCULAR: Denies chest pain, palpitations, or edema. RESPIRATORY: Denies cough or dyspnea. GASTROINTESTINAL: Denies abdominal pain, nausea, vomiting, or diarrhea. GENITOURINARY: Denies dysuria or hematuria. SKIN: Denies rash or itching. MUSCULOSKELETAL: Denies back pain, joint pain, or myalgia. NEUROLOGIC: Denies headache, numbness, or weakness. states some dizziness, no room spinning and does not seem to be related to position changes PSYCHIATRIC: Denies anxiety or depression. All systems reviewed & are unremarkable except as noted in HPI and below PMFSH Past Medical History Medical History BMI 27.0-27.9,adult Hx of headache Screening mammogram, encounter for NAION (non-arteritic anterior ischemic optic neuropathy), 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 Low vitamin D level Hypersomnolence Hot flashes Kidney stones (07/13/06) passed natural Essential hypertension Factor 5 Leiden mutation, heterozygous MAG (generalized anxiety disorder) Primary narcolepsy without cataplexy Surgical History Surgical History H/O lithotripsy (~06/12/23) H/O bilateral salpingectomy (10/02/22) Laparoscopic bilateral salpingectomy Laparoscopic left ovarian cystotomy History of gynecological procedure Hscope D&C retained placenta after delivery History of gynecological procedure Hscope suction D&C missed AB History of gynecological procedure laparoscopic removal of retained IUD device Delivery by section (08/28/19) rpt c/s History of gynecological procedure (12/25/10) mirena iud insertion History of (11/13/10) primary c/s Hx laparoscopic cholecystectomy 09/28/18 Family History Family History Sibling Asthma Family history of obesity Depression Hypertension Factor V deficiency Father Family history of diabetes mellitus in first degree relative Family history of heart disease in male family member before age 55 Diabetes mellitus Family history of obesity Patient's father is in good health Mother Family history of diabetes mellitus in first degree relative Family history of heart disease in male family member before age 55 Diabetes mellitus Hypertension Patient's mother is in good health Other Cancer Cerebrovascular accident Family history of cardiovascular disease Family history of malignant neoplasm Social History Social History Smoking status: Never smoker Second hand tobacco smoke exposure: No Alcohol intake: current Alcohol use details: 1/MONTH Substance use: never Substance use type: does not use Lack of Transportation: No Lack of Food: Never True Current Housing: I Have Housing Concerned About Future Housing: No Difficulty Paying Gas/Electric Bills: No Difficulty Paying for Meds: No Currently Unemployed: No Education: Associate Degree Difficulty w/ Childcare or Family Care: No Living arrangements: with family Additional living arrangements comments: spouse Occupation/Education: occupation 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 There is no relevant family history pertinent to the presenting complaint Exam Narrative: GENERAL: Well-appearing, well-nourished, and in no acute distress. HEAD: Normocephalic, atraumatic. EYES: PERRLA and EOMI. ENT: Nares clear, no rhinorrhea or epistaxis. Mucous membranes moist.Right and Left TM normal with some irritation to the right ear canal, throat pink with no swelling NECK: Supple. no lymphadenopathy CHEST: Clear to auscultation. No respiratory distress. SAO2 98% on room air HEART: Regular rate and rhythm. No murmur heard. Normal peripheral pulses. ABDOMEN: Soft, nontender, nondistended, normal active bowel sounds. EXTREMITIES: Normal range of motion. No edema. SKIN: Warm, dry, no rash. NEURO: No focal deficits. Alert and oriented x3. Course Course Level of Care: Express Care Visit Vital Signs Vital signs: Vital Signs Temperature 36.6 C 06/30/25 12:19 Pulse Rate 82 06/30/25 12:19 Respiratory Rate 16 06/30/25 12:19 Blood Pressure 135/92 H 06/30/25 12:19 Pulse Oximetry 98 06/30/25 12:19 Oxygen Delivery Room Air 06/30/25 12:19 Temperature 36.6 C 06/30/25 12:19 Pulse Rate 82 06/30/25 12:19 Respiratory Rate 16 06/30/25 12:19 Blood Pressure 135/92 H 06/30/25 12:19 Pulse Oximetry 98 06/30/25 12:19 Oxygen Delivery Room Air 06/30/25 12:19 reviewed MDM MDM Narrative Medical decision making narrative: Patient is nontoxic and patient is appropriate for outpatient care and f9llow up. Patient received anticipatory guidance and reviewed reasons to seek care in emergency department. Differential Diagnosis Differential Diagnosis: Differential diagnostic considerations for upper respiratory infection include upper respiratory infection, croup, otitis media, sinusitis, viral infection, bronchitis, influenza, pharyngitis, strep, uvulitis.?otitis externa, dizziness. Critical Care Time Critical Care Time Critical Care Time: No Discharge Plan Discharge Clinical Impression: Otitis externa, Nonspecific dizziness Patient Disposition: Home Condition: Stable Instructions: Antibiotic Form, Barotitis Media (ED), Dizziness (ED) Additional Instructions: Increase fluids especially juices and water Mkov-mun-fkjooxy cough and cold medicine of your choice for your symptoms Zyrtec Claritin or Avani daily include Coricidin brand decongestant heat to the face 20-30 minutes 4-6 times a day for pain Salt water gargles, throat lozenges or throat sprays as desired Antibiotic ear drops as prescribed use as directed--finished the medication Make all position changes slowly Follow up with PCP in 3-7 days or sooner if needed If your symptoms persist, change or worsen significantly before you can contact your personal physician then please, without delay, go to the emergency department for further evaluation. Follow-up with PCP in 7-10 days or sooner if needed Follow up with PCP soon in regards to your blood pressure which is elevated above threshold for referral. Blood pressure above 120/80 may indicate pre-hypertension. 135/92 Patient Language: Frisian Prescriptions: New ofloxacin 0.3 % drops 5 drp RIGHT EAR BID 7 Days Qty: 10 0RF No Action cholecalciferol (vitamin D3) 50 mcg (2,000 unit) capsule 50 mcg PO DAILY loratadine [Claritin] 10 mg tablet 10 mg PO DAILY omeprazole 20 mg capsule,delayed release(DR/EC) 20 mg PO DAILY aspirin 81 mg Tablet,Chewable 81 mg PO DAILY Follow-up/Referrals: Sebastian Sewell APRN [Primary Care Provider, Internal Medicine] Time of Disposition: 12:42 Quality Maggi Coma Scale Eyes: Open Verbal: Oriented and Alert Motor: Follows Commands Maggi Coma Total Score: 15
== END 2025-06-30 12:50 | disposition home or self-care (01) ==
PROVIDERS: Emergency Provider Registered Nurse; PCP Nurse Practitioner
DX: H60.91 Unspecified otitis externa, right ear (principal); R42 Dizziness and giddiness; I10 Essential (primary) hypertension; D68.51 Activated protein C resistance; Z79.82 Long term (current) use of aspirin
CPT/HCPCS: 99213; G0463